=== PATIENT | male | born 1950 | race Caucasian/White ===

== ENCOUNTER 2018-02-02 15:11 | Inpatient (IN) | payer MEDICARE ==
[2018-02-02] MEDS ORDERED: SODIUM CHLORIDE 0.9% 500 ML IV ONE ×2 (15:24→16:43)
--- NOTE | 2018-02-02 15:31 | ED ---
General Adult HPI - General Source: patient, RN notes reviewed Mode of arrival: wheelchair Limitations: no limitations <Shant Fu - Last Filed: 02/02/18 16:43> <Raf Ford - Last Filed: 02/02/18 17:17> - General Chief complaint: Fall Stated complaint: Fall/petition Time Seen by Provider: 02/02/18 15:11 - History of Present Illness Initial comments: This is a 67-year-old male who presents emergency department for multiple falls since yesterday. According to the patient he fell yesterday and hit his face but he did not want to come to the emergency department. Today he did go in to [facility] and started to be evaluated when he signed out AMA. Patient since has fallen again landed face first according to witnesses and try to sign off but was not alert and oriented 3 so police brought him in with EMS. Patient's has no complaints at the present time however he does believe it is February or March. I do not know what his baseline is but his family member states that he normally can tell what month it is. Family member also states that he drinks daily. Patient denies drinking today however family member states she thinks he was drinking today. Patient denies headache patient denies neck pain patient denies numbness weakness. Patient denies any facial tenderness. Patient denies any chest pain back pain or any extremity pain at this time. Patient is full range of motion of all 4 extremities. (Shant Fu) - Related Data Home Medications Medication Instructions Recorded Confirmed Omeprazole [PriLOSEC] 20 mg PO AC-BRKFST 02/02/18 02/02/18 Simvastatin [Zocor] 20 mg PO DAILY 02/02/18 02/02/18 amLODIPine [Norvasc] 10 mg PO DAILY 02/02/18 02/02/18 Allergies Allergy/AdvReac Type Severity Reaction Status Date / Time No Known Allergies Allergy Verified 02/02/18 16:20 Review of Systems ROS Other: All systems not noted in ROS Statement are negative. <Shant Fu - Last Filed: 02/02/18 16:43> ROS Other: All systems not noted in ROS Statement are negative. <Raf Ford - Last Filed: 02/02/18 17:17> ROS Statement: Those systems with pertinent positive or pertinent negative responses have been documented in the HPI. Past Medical History Past Medical History: Hyperlipidemia, Hypertension History of Any Multi-Drug Resistant Organisms: None Reported Past Surgical History: Tonsillectomy Past Psychological History: No Psychological Hx Reported Smoking Status: Former smoker Past Alcohol Use History: Abuse Past Drug Use History: None Reported <Shant Fu - Last Filed: 02/02/18 16:43> General Exam Limitations: no limitations <Shant Fu - Last Filed: 02/02/18 16:43> <Raf Ford - Last Filed: 02/02/18 17:17> - General Exam Comments Initial Comments: GENERAL: Patient is well-developed and well-nourished. Patient is nontoxic and well- hydrated and is in no acute distress. ENT: Neck is soft and supple. No significant lymphadenopathy is noted. Oropharynx is clear. Moist mucous membranes. Neck has full range of motion without eliciting any pain. EYES: The sclera were anicteric and conjunctiva were pink and moist. Extraocular movements were intact and pupils were equal round and reactive to light. Eyelids were unremarkable. PULMONARY: Unlabored respirations. Good breath sounds bilaterally. No audible rales rhonchi or wheezing was noted. CARDIOVASCULAR: There is a regular rate and rhythm without any murmurs gallops or rubs. ABDOMEN: Soft and nontender with normal bowel sounds. No palpable organomegaly was noted. There is no palpable pulsatile mass. SKIN: Patient has a superficial abrasion on the forehead as well as the nose NEUROLOGIC: Patient is alert and oriented 2. Cranial nerves II through XII are grossly intact. Motor and sensory are also intact. Normal speech, volume and content. Symmetrical smile. MUSCULOSKELETAL: Normal extremities with adequate strength and full range of motion. Patient has no facial tenderness at all. LYMPHATICS: No significant lymphadenopathy is noted PSYCHIATRIC: Normal psychiatric evaluation. Patient denies suicidal or homicidal ideations. (Shant Fu) Vital Signs 02/02/18 02/02/18 15:13 16:30 Temperature 97.6 F Pulse Rate 80 78 Respiratory 16 18 Rate Blood Pressure 133/65 132/61 O2 Sat by Pulse 100 Oximetry EKG Findings - EKG Results: EKG: interpreted by ERMD, sinus rhythm (Sinus rhythm rate of 82. Interval 162 QRS duration 86 QT since QTC 492/[address] configuration a marked amount of artifact is present) <Raf Ford - Last Filed: 02/02/18 17:17> Medical Decision Making - Lab Data Result diagrams: 02/02/18 15:20 02/02/18 15:20 <Shant Fu - Last Filed: 02/02/18 16:43> - Lab Data Result diagrams: 02/02/18 15:20 02/02/18 15:20 <Raf Ford - Last Filed: 02/02/18 17:17> - Medical Decision Making CT of the face C-spine and brain showed no acute abnormalities. Patient's sodium was low on potassium was slightly gave the patient supplements of potassium and gave him a 1000 mL bolus of normal saline and put him on 100 and hour. I spoke with Dr. Aj he agreed to admit the patient admitted the patient I wrote admitting orders. (Shant Fu) - Lab Data Lab Results 02/02/18 02/02/18 02/02/18 Range/Units 15:20 15:20 15:20 WBC (3.8-10.6) k/uL RBC (4.30-5.90) m/uL Hgb (13.0-17.5) gm/dL Hct (39.0-53.0) % MCV (80.0-100.0) fL MCH (25.0-35.0) pg MCHC (31.0-37.0) g/dL RDW (11.5-15.5) % Plt Count (150-450) k/uL Neutrophils % % Lymphocytes % % Monocytes % % Eosinophils % % Basophils % % Neutrophils # (1.3-7.7) k/uL Lymphocytes # (1.0-4.8) k/uL Monocytes # (0-1.0) k/uL Eosinophils # (0-0.7) k/uL Basophils # (0-0.2) k/uL Hypochromasia Poikilocytosis Anisocytosis Microcytosis PT (9.0-12.0) sec INR (<1.2) APTT (22.0-30.0) sec Sodium 114 L* (137-145) mmol/L Potassium 3.0 L* (3.5-5.1) mmol/L Chloride 72 L* (98-107) mmol/L Carbon Dioxide 29 (22-30) mmol/L Anion Gap 13 mmol/L BUN 16 (9-20) mg/dL Creatinine 0.60 L (0.66-1.25) mg/dL Est GFR (CKD-EPI)AfAm >90 (>60 ml/min/1.73 sqM) Est GFR (CKD-EPI)NonAf >90 (>60 ml/min/1.73 sqM) Glucose 101 H (74-99) mg/dL Calcium 9.2 (8.4-10.2) mg/dL Magnesium 1.8 (1.6-2.3) mg/dL Total Bilirubin 1.1 (0.2-1.3) mg/dL AST 91 H (17-59) U/L ALT 55 (21-72) U/L Alkaline Phosphatase 79 (38-126) U/L Ammonia <9 (<30) umol/L Total Creatine Kinase 817 H (55-170) U/L CK-MB (CK-2) 10.8 H* (0.0-2.4) ng/mL CK-MB (CK-2) Rel Index 1.3 Troponin I <0.012 (0.000-0.034) ng/mL Total Protein 7.2 (6.3-8.2) g/dL Albumin 4.5 (3.5-5.0) g/dL Urine Color Urine Appearance (Clear) Urine pH (5.0-8.0) Ur Specific [place] (1.001-1.035) Urine Protein (Negative) Urine Glucose (UA) (Negative) Urine Ketones (Negative) Urine Blood (Negative) Urine Nitrite (Negative) Urine Bilirubin (Negative) Urine Urobilinogen (<2.0) mg/dL Ur Leukocyte Esterase (Negative) Urine Opiates Screen (NotDetected) Ur Oxycodone Screen (NotDetected) Urine Methadone Screen (NotDetected) Ur Propoxyphene Screen (NotDetected) Ur Barbiturates Screen (NotDetected) U Tricyclic Antidepress (NotDetected) Ur Phencyclidine Scrn (NotDetected) Ur Amphetamines Screen (NotDetected) U Methamphetamines Scrn (NotDetected) U Benzodiazepines Scrn (NotDetected) Urine Cocaine Screen (NotDetected) U Marijuana (THC) Screen (NotDetected) Serum Alcohol <10 mg/dL 02/02/18 02/02/18 02/02/18 Range/Units 15:20 15:20 15:20 WBC 9.3 (3.8-10.6) k/uL RBC 4.30 (4.30-5.90) m/uL Hgb 8.8 L (13.0-17.5) gm/dL Hct 28.0 L (39.0-53.0) % MCV 65.2 L (80.0-100.0) fL MCH 20.4 L (25.0-35.0) pg MCHC 31.3 (31.0-37.0) g/dL RDW 17.6 H (11.5-15.5) % Plt Count 255 (150-450) k/uL Neutrophils % 88 % Lymphocytes % 2 % Monocytes % 8 % Eosinophils % 0 % Basophils % 0 % Neutrophils # 8.2 H (1.3-7.7) k/uL Lymphocytes # 0.2 L (1.0-4.8) k/uL Monocytes # 0.7 (0-1.0) k/uL Eosinophils # 0.0 (0-0.7) k/uL Basophils # 0.0 (0-0.2) k/uL Hypochromasia Moderate Poikilocytosis Slight Anisocytosis Slight Microcytosis Marked PT 10.1 (9.0-12.0) sec INR 1.0 (<1.2) APTT 23.9 (22.0-30.0) sec Sodium (137-145) mmol/L Potassium (3.5-5.1) mmol/L Chloride (98-107) mmol/L Carbon Dioxide (22-30) mmol/L Anion Gap mmol/L BUN (9-20) mg/dL Creatinine (0.66-1.25) mg/dL Est GFR (CKD-EPI)AfAm (>60 ml/min/1.73 sqM) Est GFR (CKD-EPI)NonAf (>60 ml/min/1.73 sqM) Glucose (74-99) mg/dL Calcium (8.4-10.2) mg/dL Magnesium (1.6-2.3) mg/dL Total Bilirubin (0.2-1.3) mg/dL AST (17-59) U/L ALT (21-72) U/L Alkaline Phosphatase (38-126) U/L Ammonia (<30) umol/L Total Creatine Kinase (55-170) U/L CK-MB (CK-2) (0.0-2.4) ng/mL CK-MB (CK-2) Rel Index Troponin I (0.000-0.034) ng/mL Total Protein (6.3-8.2) g/dL Albumin (3.5-5.0) g/dL Urine Color Yellow Urine Appearance Clear (Clear) Urine pH 6.0 (5.0-8.0) Ur Specific [place] 1.013 (1.001-1.035) Urine Protein Trace H (Negative) Urine Glucose (UA) Negative (Negative) Urine Ketones 2+ H (Negative) Urine Blood Negative (Negative) Urine Nitrite Negative (Negative) Urine Bilirubin Negative (Negative) Urine Urobilinogen 2.0 (<2.0) mg/dL Ur Leukocyte Esterase Negative (Negative) Urine Opiates Screen Not Detected (NotDetected) Ur Oxycodone Screen Not Detected (NotDetected) Urine Methadone Screen Not Detected (NotDetected) Ur Propoxyphene Screen Not Detected (NotDetected) Ur Barbiturates Screen Not Detected (NotDetected) U Tricyclic Antidepress Not Detected (NotDetected) Ur Phencyclidine Scrn Not Detected (NotDetected) Ur Amphetamines Screen Not Detected (NotDetected) U Methamphetamines Scrn Not Detected (NotDetected) U Benzodiazepines Scrn Not Detected (NotDetected) Urine Cocaine Screen Not Detected (NotDetected) U Marijuana (THC) Screen Not Detected (NotDetected) Serum Alcohol mg/dL Critical Care Time Critical Care Time: Yes Total Critical Care Time: 35 <Shant Fu - Last Filed: 02/02/18 16:43> Disposition Time of Disposition: 16:37 <Shant Fu - Last Filed: 02/02/18 16:43> <Raf Ford - Last Filed: 02/02/18 17:17> Clinical Impression: Fall, Anemia, Alcohol abuse, Altered mental status, Hyponatremia, Hypokalemia Disposition: ADMITTED IP TO THIS HOSP
[2018-02-02 15:54] LABS: Anisocytosis Slight; Appearance,Urine Clear (Clear); Basophils % (A) 0 %; Bilirubin,Urine Negative (Negative); Blood,Urine Negative (Negative); Color,Urine Yellow; Eosinophils % (A) 0 %; Glucose,Urine (UA) Negative (Negative); HGB 8.8 gm/dL (13.0-17.5); Hypochromasia Moderate; Ketones,Urine 2+ (Negative); Leukocyte Esterase,Urine Negative (Negative); Lymphocytes # (A) 0.2 k/uL (1.0-4.8); Lymphocytes % (A) 2 %; MCH 20.4 pg (25.0-35.0); MCHC 31.3 g/dL (31.0-37.0); MCV 65.2 fL (80.0-100.0); Mean Platelet Volume 6.6; Microcytosis Marked; Monocytes # (A) 0.7 k/uL (0-1.0); Monocytes % (A) 8 %; Neutrophils # (A) 8.2 k/uL (1.3-7.7); Neutrophils % (A) 88 %; Nitrite,Urine Negative (Negative); Platelet Count 255 k/uL (150-450); Poikilocytosis Slight; Protein,Urine Trace (Negative); RDW 17.6 % (11.5-15.5); Specific Gravity,Urine 1.013 (1.001-1.035); WBC 9.3 k/uL (3.8-10.6)
[2018-02-02 16:01] LABS: ALT 55 U/L (21-72); AST 91 U/L (17-59); Albumin 4.5 g/dL (3.5-5.0); Alcohol <10 mg/dL; Alkaline Phosphatase 79 U/L (38-126); Amphetamine Screen,Urine Not Detected (NotDetected); Anion Gap 13 mmol/L; Barbiturate Screen,Urine Not Detected (NotDetected); Benzodiazepines Screen,Urine Not Detected (NotDetected); Blood Urea Nitrogen 16 mg/dL (9-20); Calcium 9.2 mg/dL (8.4-10.2); Carbon Dioxide 29 mmol/L (22-30); Cocaine Screen,Urine Not Detected (NotDetected); Glucose 101 mg/dL (74-99); Magnesium 1.8 mg/dL (1.6-2.3); Methadone Screen, Urine Not Detected (NotDetected); Opiate Screen,Urine Not Detected (NotDetected); Oxycodone Screen, Urine Not Detected (NotDetected); Phencyclidine Screen,Urine Not Detected (NotDetected); Total Bilirubin 1.1 mg/dL (0.2-1.3); Total Protein 7.2 g/dL (6.3-8.2); Tricyclic Antidepressant,Urine Not Detected (NotDetected); Urn Cannabinoid Scrn Not Detected (NotDetected)
[2018-02-02 16:05] LABS: Partial Thromboplastin Time 23.9 sec (22.0-30.0); Prothrombin Time 10.1 sec (9.0-12.0)
[2018-02-02 16:07] LABS: Chloride 72 mmol/L (98-107); Sodium 114 mmol/L (137-145)
--- NOTE | 2018-02-02 16:12 | XR ---
EXAMINATION TYPE: XR chest 2V DATE OF EXAM: 02/02/2018 COMPARISON: NONE HISTORY: Increased confusion and multiple falls today. TECHNIQUE: Frontal and lateral views of the chest are obtained. FINDINGS: Slightly elevated left hemidiaphragm is present. There is no focal air space opacity, pleur al effusion, or pneumothorax seen. The cardiac silhouette size is within normal limits. The osseou s structures are intact. IMPRESSION: No acute cardiopulmonary process.
[2018-02-02 16:16] LABS: Creatine Kinase 817 U/L (55-170)
--- NOTE | 2018-02-02 16:24 | CT ---
EXAMINATION TYPE: CT facial bones wo con DATE OF EXAM: 02/02/2018 COMPARISON: NONE HISTORY: Fall injury with facial pain. CT DLP: 708.4 mGycm. Automated Exposure Control for Dose Reduction was Utilized. TECHNIQUE: CT scan of the facial bones are performed without contrast. FINDINGS: Nasal bones are intact. The zygomatic arches are intact. Visualized mandible is intact. Tem poromandibular joints are maintained bilaterally. Orbital floors and reis are intact. The globes are intact bilaterally. Intraconal fat is preserved. Pterygoid plates are intact. Visualized paranasal sinuses are clear. Please see same-day CT brain report for complete details on b rain parenchyma. Age-related atrophy and chronic small vessel ischemic change is noted. IMPRESSION: No acute facial bone fracture or dislocation is seen.
[2018-02-02] MEDS ORDERED: POTASSIUM CHLORIDE ER 20 MEQ TAB.ER PO STA (16:26)
--- NOTE | 2018-02-02 16:28 | CT ---
EXAMINATION TYPE: CT brain udayine wo con DATE OF EXAM: 02/02/2018 COMPARISON: NONE HISTORY: Fall. CT DLP: 1633 mGycm Automated exposure control for dose reduction was used. TECHNIQUE: CT scan of the head and cervical spine are performed without contrast. FINDINGS: There is no acute intracranial hemorrhage, mass effect, or midline shift identified. The ventricles and sulci are within normal limits in size. There is likely age-related atrophy. Perivent ricular white matter shows low attenuation likely due to chronic small vessel ischemia. Cerebral vasc ular calcifications are present. The globes are intact and the visualized sinuses are clear. Cervical spine is visualized in its entirety from C1 through upper thoracic levels and demonstrates s atisfactory alignment without evidence of acute fracture or dislocation. Prevertebral soft tissue ap pears within normal limits. The C1-C2 articulation is unremarkable. There is multilevel spondylosis present with associated loss of disc height. Posterior extension of endplate disc complex and extens ion laterally results in foraminal encroachment and multilevel spinal stenosis greatest at C4-5, C5-6 . There is multilevel facet arthropathy. Emphysematous changes are noted at the lung apices. IMPRESSION: 1. There is no acute fracture or dislocation evident in the cervical spine. 2. No acute intracranial hemorrhage, mass effect, or midline shift is seen. 3. Spinal stenosis, multilevel foraminal encroachment, age related atrophy and chronic small vessel i schemia
[2018-02-02 16:29] LABS: Troponin I <0.012 ng/mL (0.000-0.034)
[2018-02-02 16:30] LABS: Creatine Kinase MB 10.8 ng/mL (0.0-2.4)
[2018-02-02] MEDS ORDERED: SODIUM CHLORIDE 0.9% 1,000 ML IV ONE (16:41)
[2018-02-02] MEDS ORDERED: LORazepam 2 MG/ML INJ IV PRN ×4 (16:41→18:37)
[2018-02-02] MEDS ORDERED: THIAMINE 100 MG/ML 2 ML VIAL IM STA (18:37)
[2018-02-02] MEDS: THIAMINE 100 MG TAB PO SCH (21:00)
[2018-02-02 21:04] LABS: ALT 49 U/L (21-72); AST 64 U/L (17-59); Albumin 3.7 g/dL (3.5-5.0); Alkaline Phosphatase 64 U/L (38-126); Anion Gap 11 mmol/L; Blood Urea Nitrogen 14 mg/dL (9-20); Calcium 8.3 mg/dL (8.4-10.2); Carbon Dioxide 29 mmol/L (22-30); GGT 32 U/L (15-73); Glucose 103 mg/dL (74-99); Total Bilirubin 0.8 mg/dL (0.2-1.3)
[2018-02-02 21:12] LABS: Sodium 118 mmol/L (137-145)
[2018-02-02 21:13] LABS: Chloride 78 mmol/L (98-107)
[2018-02-02] MEDS ORDERED: Potassium Replacement Protocol 1 EACH MISC MISCELLANE PRN (21:45)
[2018-02-02] MEDS: POTASSIUM CHLORIDE ER 20 MEQ TAB.ER PO SCH ×2 (22:21→23:06)
[2018-02-03] MEDS: POTASSIUM CHLORIDE ER 20 MEQ TAB.ER PO SCH ×4 (01:48→10:24)
[2018-02-03 06:54] LABS: Anisocytosis Slight; Basophils % (A) 0 %; Eosinophils % (A) 0 %; HCT 26.6 % (39.0-53.0); HGB 8.1 gm/dL (13.0-17.5); Hypochromasia Marked; Lymphocytes # (A) 0.2 k/uL (1.0-4.8); Lymphocytes % (A) 3 %; MCH 20.3 pg (25.0-35.0); MCHC 30.3 g/dL (31.0-37.0); MCV 67.1 fL (80.0-100.0); Mean Platelet Volume 6.6; Microcytosis Marked; Monocytes # (A) 0.5 k/uL (0-1.0); Monocytes % (A) 9 %; Neutrophils # (A) 5.4 k/uL (1.3-7.7); Neutrophils % (A) 85 %; Platelet Count 253 k/uL (150-450); Poikilocytosis Slight; RBC 3.97 m/uL (4.30-5.90); RDW 17.7 % (11.5-15.5); WBC 6.3 k/uL (3.8-10.6)
[2018-02-03 07:04] LABS: ALT 56 U/L (21-72); AST 63 U/L (17-59); Albumin 3.8 g/dL (3.5-5.0); Alkaline Phosphatase 73 U/L (38-126); Anion Gap 11 mmol/L; Blood Urea Nitrogen 10 mg/dL (9-20); Calcium 8.2 mg/dL (8.4-10.2); Carbon Dioxide 28 mmol/L (22-30); Chloride 83 mmol/L (98-107); Glucose 84 mg/dL (74-99); Magnesium 1.7 mg/dL (1.6-2.3); Potassium 3.5 mmol/L (3.5-5.1); Sodium 122 mmol/L (137-145); Total Bilirubin 0.8 mg/dL (0.2-1.3); Total Protein 6.2 g/dL (6.3-8.2)
[2018-02-03] MEDS: ATORVASTATIN 10 MG TAB PO SCH (08:42)
[2018-02-03] MEDS: amLODIPine 10 MG TAB PO SCH (08:42)
[2018-02-03] MEDS: PANTOPRAZOLE 40 MG/10 ML VIAL IVP SCH (08:42)
[2018-02-03 08:49] LABS: Reticulocyte % 2.1 % (0.5-2.0)
[2018-02-03] MEDS: THIAMINE 100 MG TAB PO SCH ×2 (11:14→16:20)
[2018-02-03 11:36] VITALS: BMI 16.3
[2018-02-03] MEDS ORDERED: FOLIC ACID 1 MG TAB PO SCH (12:00)
[2018-02-03 13:33] LABS: Anion Gap 7 mmol/L; Blood Urea Nitrogen 11 mg/dL (9-20); Calcium 8.1 mg/dL (8.4-10.2); Carbon Dioxide 30 mmol/L (22-30); Chloride 88 mmol/L (98-107); Glucose 132 mg/dL (74-99); Potassium 3.9 mmol/L (3.5-5.1); Sodium 125 mmol/L (137-145)
--- NOTE | 2018-02-03 13:33 | P.HPIM ---
History of Present Illness H&P Date: 02/03/18 Chief Complaint: Multiple falls. This is a history and physical on a 67-year-old white male who has an underlying history of severe alcoholism for the last 50 years. The patient has been at home stating multiple falls. History is somewhat vague because the patient states that he completely stopped drinking about a week ago, but this has not been corroborated from his family. He tells me he drinks at least 3 Budweiser daily. His family states that he can drink up to 4 16 ounce bottles of BudweiserAt one time and he has been doing this for at least 45-50 years there is no history of delirium tremens. He has an underlying history of hyperlipidemia otherwise. Because of his altered mental status he was appropriately admitted. CT scans ability did not show any type of new vascular accident. Again, no history of delirium tremens or seizure disorder. Review of Systems Constitutional: Denies chills, Denies fever Eyes: denies blurred vision, denies pain Ears, nose, mouth and throat: Denies headache, Denies sore throat Cardiovascular: Denies chest pain, Denies shortness of breath Respiratory: Denies cough Gastrointestinal: Denies abdominal pain, Denies diarrhea, Denies nausea, Denies vomiting Musculoskeletal: Denies neck pain Integumentary: Reports rash Neurological: Reports as per HPI Past Medical History Past Medical History: Hyperlipidemia, Hypertension Additional Past Medical History / Comment(s): pt is an alcoholic drinks 4-16 oz of beer per day. Pt smokes 3-4 cigarettes. History of Any Multi-Drug Resistant Organisms: None Reported Past Surgical History: Tonsillectomy Past Anesthesia/Blood Transfusion Reactions: No Reported Reaction Past Psychological History: No Psychological Hx Reported Smoking Status: Current every day smoker Past Alcohol Use History: Abuse, Daily Additional Past Alcohol Use History / Comment(s): drinks 4- 16 oz of beer per day Past Drug Use History: None Reported - Past Family History Father History Unknown: Yes Mother History Unknown: Yes Medications and Allergies Home Medications Medication Instructions Recorded Confirmed Type Omeprazole [PriLOSEC] 20 mg PO AC-BRKFST 02/02/18 02/02/18 History Simvastatin [Zocor] 20 mg PO DAILY 02/02/18 02/02/18 History amLODIPine [Norvasc] 10 mg PO DAILY 02/02/18 02/02/18 History Allergies Allergy/AdvReac Type Severity Reaction Status Date / Time No Known Allergies Allergy Verified 02/02/18 16:20 Physical Exam Vitals: Vital Signs Temp Pulse Pulse Resp BP BP Pulse Ox 02/03/18 11:33 99 F 81 16 121/58 99 02/03/18 08:00 97 F L 75 18 108/51 97 02/03/18 03:53 80 18 02/03/18 03:51 98.3 F 80 18 125/63 02/03/18 00:00 86 17 02/02/18 23:59 97.1 F L 86 17 114/53 02/02/18 20:00 97.4 F L 84 16 117/61 02/02/18 19:09 83 16 02/02/18 17:46 98.0 F 02/02/18 17:36 81 18 135/65 98 02/02/18 17:00 97.4 F L 83 16 120/57 96 02/02/18 16:30 78 18 132/61 100 02/02/18 15:13 97.6 F 80 16 133/65 Intake and Output 02/02/18 02/03/18 02/03/18 22:59 06:59 14:59 Intake Total 360 200 180 Output Total 350 600 Balance 360 -150 -420 Intake: Oral 360 200 180 Output: Urine 350 600 Other: Voiding Method Urinal Urinal Urinal # Voids 1 Weight 45 kg 44.6 kg 44.6 kg - Constitutional General appearance: thin - EENT Eyes: no anicteric sclerae - Respiratory Respiratory: bilateral: CTA - Cardiovascular Rhythm: regular Heart sounds: normal: S1, S2 Abnormal Heart Sounds: no S3 Gallop - Gastrointestinal General gastrointestinal: soft, no tenderness - Integumentary Integumentary: no rash - Neurologic No tremor noted. No Asterixis Results CBC & Chem 7: 02/03/18 05:48 02/03/18 05:48 Labs: Abnormal Lab Results - Last 24 Hours (Table) 02/02/18 02/02/18 02/02/18 Range/Units 15:20 15:20 15:20 RBC (4.30-5.90) m/uL Hgb 8.8 L (13.0-17.5) gm/dL Hct 28.0 L (39.0-53.0) % MCV 65.2 L (80.0-100.0) fL MCH 20.4 L (25.0-35.0) pg MCHC (31.0-37.0) g/dL RDW 17.6 H (11.5-15.5) % Neutrophils # 8.2 H (1.3-7.7) k/uL Lymphocytes # 0.2 L (1.0-4.8) k/uL Retic Count (0.5-2.0) % Sodium 114 L* (137-145) mmol/L Potassium 3.0 L* (3.5-5.1) mmol/L Chloride 72 L* (98-107) mmol/L Creatinine 0.60 L (0.66-1.25) mg/dL Glucose 101 H (74-99) mg/dL Calcium (8.4-10.2) mg/dL AST 91 H (17-59) U/L Total Creatine Kinase 817 H (55-170) U/L CK-MB (CK-2) 10.8 H* (0.0-2.4) ng/mL Total Protein (6.3-8.2) g/dL Urine Protein (Negative) Urine Ketones (Negative) 02/02/18 02/02/18 02/03/18 Range/Units 15:20 20:12 00:45 RBC (4.30-5.90) m/uL Hgb (13.0-17.5) gm/dL Hct (39.0-53.0) % MCV (80.0-100.0) fL MCH (25.0-35.0) pg MCHC (31.0-37.0) g/dL RDW (11.5-15.5) % Neutrophils # (1.3-7.7) k/uL Lymphocytes # (1.0-4.8) k/uL Retic Count (0.5-2.0) % Sodium 118 L* (137-145) mmol/L Potassium 3.0 L* 3.1 L (3.5-5.1) mmol/L Chloride 78 L* (98-107) mmol/L Creatinine (0.66-1.25) mg/dL Glucose 103 H (74-99) mg/dL Calcium 8.3 L (8.4-10.2) mg/dL AST 64 H (17-59) U/L Total Creatine Kinase (55-170) U/L CK-MB (CK-2) (0.0-2.4) ng/mL Total Protein 6.0 L (6.3-8.2) g/dL Urine Protein Trace H (Negative) Urine Ketones 2+ H (Negative) 02/03/18 02/03/18 02/03/18 Range/Units 05:48 05:48 05:48 RBC 3.97 L (4.30-5.90) m/uL Hgb 8.1 L (13.0-17.5) gm/dL Hct 26.6 L (39.0-53.0) % MCV 67.1 L (80.0-100.0) fL MCH 20.3 L (25.0-35.0) pg MCHC 30.3 L (31.0-37.0) g/dL RDW 17.7 H (11.5-15.5) % Neutrophils # (1.3-7.7) k/uL Lymphocytes # 0.2 L (1.0-4.8) k/uL Retic Count 2.1 H (0.5-2.0) % Sodium 122 L (137-145) mmol/L Potassium (3.5-5.1) mmol/L Chloride 83 L (98-107) mmol/L Creatinine 0.48 L (0.66-1.25) mg/dL Glucose (74-99) mg/dL Calcium 8.2 L (8.4-10.2) mg/dL AST 63 H (17-59) U/L Total Creatine Kinase (55-170) U/L CK-MB (CK-2) (0.0-2.4) ng/mL Total Protein 6.2 L (6.3-8.2) g/dL Urine Protein (Negative) Urine Ketones (Negative) Thrombosis Risk Factor Assmnt - Choose All That Apply Each Risk Factor Represents 2 Points: Age 61-74 years Thrombosis Risk Factor Assessment Total Risk Factor Score: 2 Thrombosis Risk Factor Assessment Level: Low Risk Assessment and Plan (1) Alcohol abuse Current Visit: Yes Status: Acute Code(s): F10.10 - ALCOHOL ABUSE, UNCOMPLICATED SNOMED Code(s): 49056282 (2) Anemia Current Visit: Yes Status: Acute Code(s): D64.9 - ANEMIA, UNSPECIFIED SNOMED Code(s): 232017186 (3) Fall Current Visit: Yes Status: Acute Code(s): W19.XXXA - UNSPECIFIED FALL, INITIAL ENCOUNTER SNOMED Code(s): 4982439 (4) Hypokalemia Current Visit: Yes Status: Acute Code(s): E87.6 - HYPOKALEMIA SNOMED Code( s): 23768456 (5) Hyponatremia Current Visit: Yes Status: Acute Code(s): E87.1 - HYPO-OSMOLALITY AND HYPONATREMIA SNOMED Code(s): 51868345 Plan: Continue electrolyte replacement with potassium protocol and IV fluid. He is slowly improving in this matter. Check CBC and CMP in a.m. Microcytic anemia, this could be somewhat chronic but we will rule out any type of iron deficiency, which could be possible given his overall nutritional decreased given his ethanol use. Placed on [place] protocol for alcoholism. early childhood services coordinator for alcoholism. Thiamine and folate to be instituted. Ativan when necessary. Prognosis is otherwise guarded. Time with Patient: Greater than 30
[2018-02-03 16:33] LABS: Iron Saturation 2.46 (15.00-50.00)
[2018-02-04 06:12] LABS: Anisocytosis Slight; HGB 8.1 gm/dL (13.0-17.5); Hypochromasia Marked; MCH 19.8 pg (25.0-35.0); MCV 68.2 fL (80.0-100.0); Microcytosis Marked; Platelet Count 259 k/uL (150-450); Poikilocytosis Slight; RBC 4.11 m/uL (4.30-5.90); RDW 18.4 % (11.5-15.5)
[2018-02-04 06:44] LABS: ALT 53 U/L (21-72); AST 61 U/L (17-59); Albumin 3.9 g/dL (3.5-5.0); Alkaline Phosphatase 73 U/L (38-126); Anion Gap 10 mmol/L; Blood Urea Nitrogen 10 mg/dL (9-20); Calcium 8.5 mg/dL (8.4-10.2); Carbon Dioxide 28 mmol/L (22-30); Chloride 89 mmol/L (98-107); Glucose 102 mg/dL (74-99); Potassium 3.6 mmol/L (3.5-5.1); Sodium 127 mmol/L (137-145); Total Bilirubin 0.5 mg/dL (0.2-1.3); Total Protein 6.4 g/dL (6.3-8.2)
--- NOTE | 2018-02-04 07:08 | P.DS ---
Providers Date of admission: 02/02/18 16:42 Attending physician: Bubba Aj Primary care physician: Bubba Aj - Discharge Diagnosis(es) (1) Alcohol abuse Current Visit: Yes Status: Acute (2) Anemia Current Visit: Yes Status: Acute (3) Fall Current Visit: Yes Status: Acute (4) Hypokalemia Current Visit: Yes Status: Acute (5) Hyponatremia Current Visit: Yes Status: Acute Hospital Course: This is a discharge summary 67-year-old white male essentially admitted for multiple falls and ALLERGIC alcohol abuse. The patient has significant hyponatremia. I also suspect he has iron deficiency anemia. Ferritin is quite low with reticulocyte being high. I will discharge the patient on iron supplementation. The patient has not had any delirium tremens and no fall. Exam been ambulating appropriately and tolerating diet without difficulty. Question need for colonoscopy if anemia does not resolve. He does not complain of any type of GI bleeding. Guaiac stool has been ordered otherwise. Plan - Discharge Summary Discharge Rx Participant: No New Discharge Prescriptions: New Ferrous Sulfate [Feosol] 325 mg PO BID #60 tab Atorvastatin [Lipitor] 10 mg PO DAILY #30 tab Continue amLODIPine [Norvasc] 10 mg PO DAILY Omeprazole [PriLOSEC] 20 mg PO AC-BRKFST Discontinued Simvastatin [Zocor] 20 mg PO DAILY Discharge Medication List Omeprazole [PriLOSEC] 20 mg PO AC-BRKFST 02/02/18 [History] amLODIPine [Norvasc] 10 mg PO DAILY 02/02/18 [History] Atorvastatin [Lipitor] 10 mg PO DAILY #30 tab 02/04/18 [Rx] Ferrous Sulfate [Feosol] 325 mg PO BID #60 tab 02/04/18 [Rx] Follow up Appointment(s)/Referral(s): Bubba Aj MD [Primary Care Provider] - 1 Week Discharge Disposition: HOME SELF-CARE
[2018-02-04 08:02] VITALS: BP 90/44; PULSE 88; RESP 18; TEMP 98.3
[2018-02-04] MEDS: ATORVASTATIN 10 MG TAB PO SCH (08:45)
[2018-02-04] MEDS: PANTOPRAZOLE 40 MG/10 ML VIAL IVP SCH (08:45)
[2018-02-04] MEDS: amLODIPine 10 MG TAB PO SCH (08:45)
== END 2018-02-04 10:21 | disposition home or self-care (01) | DRG 641 ==
LOC: EC 15:11 → 6SEL 16:42
PROVIDERS: ADMIT Family Medicine; ATTEND Family Medicine
DX: E87.1 Hypo-osmolality and hyponatremia (principal); D50.9 Iron deficiency anemia, unspecified; E87.6 Hypokalemia; E78.5 Hyperlipidemia, unspecified; F10.20 Alcohol dependence, uncomplicated; I10 Essential (primary) hypertension; S00.81XA Abrasion of other part of head, initial encounter; S00.31XA Abrasion of nose, initial encounter; R29.6 Repeated falls; R41.82 Altered mental status, unspecified; F17.210 Nicotine dependence, cigarettes, uncomplicated; Y90.0 Blood alcohol level of less than 20 mg/100 ml; Z79.899 Other long term (current) drug therapy; W19.XXXA Unspecified fall, initial encounter
CPT/HCPCS: 36415; 70450; 70486; 71046; 72125; 80048; 80053; 80306; 80320; 81003; 82140; 82550; 82553; 82728; 82977; 83540; 83550; 83735; 84132; 84484; 85025; 85027; 85045; 85610; 85730; 93005; 96360; 99291

== ENCOUNTER 2018-03-21 20:41 | Emergency (ER) | payer MEDICARE ==
[2018-03-21 20:52] VITALS: RESP 18
--- NOTE | 2018-03-21 21:59 | CT ---
EXAMINATION TYPE: CT brain beata ramirez DATE OF EXAM: 03/21/2018 COMPARISON: NONE HISTORY: Fall CT DLP: 1651.30 mGycm, Automated exposure control for dose reduction was used. CONTRAST: Patient injected with 0 mL of Isovue 370. CT of the brain is performed utilizing 3 mm thick sections through the posterior fossa and 3 mm thick sections through the remaining calvarium. Study is performed within 24 hours of arrival to the hospital. No abnormal hyperdensity is present to suggest an acute intracranial hemorrhage. No mass lesion is evident. No acute infarcts are evident. Minimal periventricular white matter hypodensity is present, likely o n the basis of chronic white matter ischemic change, present previously. Ventricles and sulci are mildly prominent for the patient age. Paranasal sinuses and mastoid air cells within the [id number] are clear. IMPRESSIONS: 1. Atrophy with mild periventricular white matter ischemic type changes CT cervical spine. COMPARISON: None CT of the cervical spine is performed in the axial plane at 2 mm thick sections. Reconstructed image s in the coronal, and sagittal plane are reviewed on the computer. No acute fractures are evident. There is a kyphosis centered at C3-4. There is diffuse loss of disc height throughout the cervical sp ine. Uncovertebral joint hypertrophy is present throughout the cervical spine causing severe foramina l stenosis especially noted C3-4 through C6-7.. Endplate spurring at C5-6 as canal stenosis as well. Vertebral body heights are preserved. IMPRESSIONS: 1. No acute osseous abnormality. 2. Severe foraminal stenosis within the cervical spine due to uncovertebral joint hypertrophy. 3. Multilevel advanced degenerative disc changes. 4. Spinal canal stenosis C5-6 secondary to endplate spurring
--- NOTE | 2018-03-21 22:01 | CT ---
EXAMINATION TYPE: CT facial bones wo con DATE OF EXAM: 03/21/2018 COMPARISON: NONE HISTORY: Fall CT DLP: 1651.30 mGycm CONTRAST: 0 mL of Isovue 300 The paranasal sinuses are examined in the axial plane at 2 mm thick sections. Reconstructed images i n the coronal plane were obtained. Nasal bone fractures are evident. Soft tissue swelling over the left periorbital region is present. M axillary spine appears intact. Maxilla and mandible within the [id number] are normal. Zygomatic ar ches within the [id number] are normal. There is right septal deviation. Ostiomeatal units are goldstein nt. Very minimal mucosal thickening is within the right maxillary sinus. No suspicious air-fluid levels a re present. The ethmoid air cells are clear. Because thickening is within the right sphenoid sinus The frontal sinuses are clear. IMPRESSIONS: 1. Fracture of the nasal bones. 2. Soft tissue swelling left frontal region
--- NOTE | 2018-03-21 23:33 | ED ---
Fall HPI - General Chief Complaint: Fall Stated Complaint: Fall, head lac Time Seen by Provider: 03/21/18 20:59 Source: patient, EMS Mode of arrival: EMS - History of Present Illness Initial Comments: 67-year-old male patient presents to the emergency department today for evaluation of facial injury following a fall. Patient does admit to drinking alcohol today, states that he was standing in the kitchen when he tripped and fell landing on his face. Patient denies any loss of consciousness with the fall. States he does have cuts to his face and nose. He denies any current headache, neck pain, back pain, dizziness, or weakness. Denies any chest pain, shortness of breath, abdominal pain, nausea, or vomiting. Patient denies any numbness or tingling to the extremities. He denies any blurred or double vision. Last tetanus vaccine was given 2 years ago. Patient denies any difficulties with bowel movements or urination. - Related Data Home Medications Medication Instructions Recorded Confirmed Omeprazole [PriLOSEC] 20 mg PO AC-BRKFST 02/02/18 02/02/18 amLODIPine [Norvasc] 10 mg PO DAILY 02/02/18 02/02/18 Previous Rx's Medication Instructions Recorded Atorvastatin [Lipitor] 10 mg PO DAILY #30 tab 02/04/18 Ferrous Sulfate [Feosol] 325 mg PO BID #60 tab 02/04/18 Allergies Allergy/AdvReac Type Severity Reaction Status Date / Time No Known Allergies Allergy Verified 02/02/18 16:20 Review of Systems ROS Statement: Those systems with pertinent positive or pertinent negative responses have been documented in the HPI. ROS Other: All systems not noted in ROS Statement are negative. Past Medical History Past Medical History: Hyperlipidemia, Hypertension Additional Past Medical History / Comment(s): pt is an alcoholic drinks 4-16 oz of beer per day. Pt smokes 3-4 cigarettes. History of Any Multi-Drug Resistant Organisms: None Reported Past Surgical History: Tonsillectomy Past Anesthesia/Blood Transfusion Reactions: No Reported Reaction Past Psychological History: No Psychological Hx Reported Smoking Status: Current every day smoker Past Alcohol Use History: Abuse, Daily Past Drug Use History: None Reported - Past Family History Father History Unknown: Yes Mother History Unknown: Yes General Exam Limitations: no limitations General appearance: alert, in no apparent distress, appears intoxicated, other ( This is a well-developed, well-nourished adult male patient in no acute distress. Vital signs upon presentation are 97.2F, pulse 73, respirations 18, blood pressure 127/60, pulse ox 99% on room air.) Eye exam: Present: normal appearance, PERRL, EOMI, periorbital tenderness ( Patient has some tenderness over the left superior orbit), other (Patient has a 2 cm laceration to the left eyebrow). Absent: scleral icterus, conjunctival injection, nystagmus, periorbital swelling ENT exam: Present: normal oropharynx, mucous membranes moist, TM's normal bilaterally, other (Patient has abrasion to the nasal bridge, nasal bridge tenderness. No evidence of epistaxis. No septal hematoma.). Absent: normal exam Neck exam: Present: normal inspection. Absent: tenderness (Denies tenderness to firm midline palpation of posterior cervical spine), meningismus, full ROM (C -collar in place), lymphadenopathy Respiratory exam: Present: normal lung sounds bilaterally. Absent: respiratory distress, wheezes, rales, rhonchi, stridor Cardiovascular Exam: Present: regular rate, normal rhythm, normal heart sounds. Absent: systolic murmur, diastolic murmur, rubs, gallop, clicks GI/Abdominal exam: Present: soft, normal bowel sounds. Absent: distended, tenderness, guarding, rebound, rigid Extremities exam: Present: full ROM, normal capillary refill, other (Patient has healing abrasion to the left knee, appears old). Absent: normal inspection , tenderness, pedal edema, joint swelling, calf tenderness Back exam: Present: normal inspection, other (Nontender, no step-off, no deformity to firm midline palpation of the thoracic and lumbar vertebrae. Full range of motion without pain or limitation.). Absent: vertebral tenderness Neurological exam: Present: alert, oriented X3, CN II-XII intact Psychiatric exam: Present: normal affect, normal mood Skin exam: Present: warm, dry, intact, normal color. Absent: rash Course Vital Signs 03/21/18 03/21/18 20:43 23:56 Temperature 97.2 F L 97 F L Pulse Rate 73 98 Respiratory 18 18 Rate Blood Pressure 127/60 134/81 O2 Sat by Pulse 99 98 Oximetry Procedures - Laceration Laceration #1 Consent Obtained: verbal consent Time Out Performed: Yes Indication: laceration Site: face (Left eyebrow) Size (cm): 2 Description: linear Depth: simple, single layer Anesthetic Used: lidocaine 1% Anesthesia Technique: local infiltration Amount (mls): 3 Pre-repair: irrigated extensively Type of Sutures: nylon Size of Sutures: 5-0 Number of Sutures: 3 Technique: simple, interrupted Patient Tolerated Procedure: well, no complications Medical Decision Making - Medical Decision Making 67-year-old male patient presented to the emergency department today for evaluation after sustaining a fall at home. Physical examination did reveal some minor periorbital ecchymosis, nasal abrasion, and left eyebrow laceration. Patient was intoxicated but was neurologically intact. CT of the brain and C- spine were obtained and showed no acute abnormalities. CT of the face was obtained and showed a fracture of the nasal bones. Patient has no epistaxis. No evidence of septal hematoma. Did repair the laceration to left eyebrow as documented. Did discuss wound care and signs or symptoms of infection. He is instructed to return in 5 days for suture removal. They're instructed to follow -up with the primary care physician for recheck in 1-2 days. He is instructed to follow-up with ENT for further evaluation. Return parameters discussed in detail. He verbalizes understanding and agree with this plan. Patient will be discharged into the care of his step daughter and . - Radiology Data Radiology results: report reviewed, image reviewed CT of the brain and C-spine was obtained without contrast. Report was reviewed in its entirety. Impression by Dr. Wheeler shows atrophy with mild. Ventricular rate moderate ischemic type changes. Impression of the cervical spine shows no acute osseous abnormality. Surgery fear foraminal stenosis within the cervical spine due to uncovertebral joint hypertrophy. Multilevel advanced degenerative disc changes. Spinal canal stenosis C5 to 6 secondary to an plates brain. CT of the facial bones without contrast was obtained. Report was reviewed in its entirety. Impression by Dr. Wheeler shows fracture of the nasal bones. Soft tissue swelling left frontal region. Disposition Clinical Impression: Nasal fracture, Head injury, Eyebrow laceration Disposition: HOME SELF-CARE Condition: Good Instructions: Care For Your Stitches (ED), Laceration (ED), Fall Prevention for Older Adults (ED), Head Injury (ED) Additional Instructions: Keep wound clean and dry. Return in 5 days to have stitches removed. Wash wound twice daily with warm water and antibacterial soap. Follow-up with wave solder offbearer for further evaluation of a nasal fracture. Return here immediately for any new, worsening, or concerning symptoms. Is patient prescribed a controlled substance at d/c from ED?: No Referrals: Bubba Aj MD [Primary Care Provider] - 1-2 days Justin Gan MD [STAFF PHYSICIAN] - 1-2 days Time of Disposition: 23:33
[2018-03-21 23:57] VITALS: BP 134/81; PULSE 98; TEMP 97
== END 2018-03-21 23:55 | disposition home or self-care (01) ==
LOC: EC 20:41
DX: S02.2XXA Fracture of nasal bones, initial encounter for closed fracture (principal); S01.112A Laceration without foreign body of left eyelid and periocular area, initial encounter; S80.212A Abrasion, left knee, initial encounter; I10 Essential (primary) hypertension; F17.200 Nicotine dependence, unspecified, uncomplicated; Z79.899 Other long term (current) drug therapy; W01.0XXA Fall on same level from slipping, tripping and stumbling without subsequent striking against object, initial encounter; Y92.000 Kitchen of unspecified non-institutional (private) residence as the place of occurrence of the external cause
CPT/HCPCS: 12011; 70450; 70486; 72125; 99284

== ENCOUNTER 2018-04-28 16:33 | Inpatient (IN) | payer MEDICARE ==
[2018-04-28 17:07] LABS: Glucose,Whole Blood 57 mg/dL (75-99)
[2018-04-28] MEDS ORDERED: SODIUM CHLORIDE 0.9% 1,000 ML IV STA ×3 (17:10→17:56)
--- NOTE | 2018-04-28 17:10 | ED ---
General Adult HPI - General Chief complaint: Fall Stated complaint: ETOH, falls Time Seen by Provider: 04/28/18 16:36 Source: EMS, RN notes reviewed, old records reviewed Mode of arrival: EMS Limitations: altered mental status - History of Present Illness Initial comments: This is a 67-year-old male to the ER for evaluation of altered mental state, patient is positive for alcohol ingestion, patient admits to alcohol ingestion today and does have a history of drinking. Patient is brought in by EMS who his called EMS secondary to patient having multiple falls patient did fall on his head tonight and was altered after the fall. Patient currently has no complaints - Related Data Home Medications Medication Instructions Recorded Confirmed Omeprazole [PriLOSEC] 20 mg PO AC-BRKFST 02/02/18 02/02/18 amLODIPine [Norvasc] 10 mg PO DAILY 02/02/18 02/02/18 Previous Rx's Medication Instructions Recorded Atorvastatin [Lipitor] 10 mg PO DAILY #30 tab 02/04/18 Ferrous Sulfate [Feosol] 325 mg PO BID #60 tab 02/04/18 Allergies Allergy/AdvReac Type Severity Reaction Status Date / Time No Known Allergies Allergy Verified 04/28/18 16:51 Review of Systems ROS Statement: Those systems with pertinent positive or pertinent negative responses have been documented in the HPI. ROS Other: All systems not noted in ROS Statement are negative. Past Medical History Past Medical History: Hyperlipidemia, Hypertension Additional Past Medical History / Comment(s): pt is an alcoholic drinks 4-16 oz of beer per day. History of Any Multi-Drug Resistant Organisms: None Reported Past Surgical History: Tonsillectomy Past Anesthesia/Blood Transfusion Reactions: No Reported Reaction Past Psychological History: No Psychological Hx Reported Smoking Status: Current every day smoker Past Alcohol Use History: Abuse, Daily Past Drug Use History: None Reported - Past Family History Father History Unknown: Yes Mother History Unknown: Yes General Exam Limitations: altered mental status General appearance: alert, appears intoxicated Head exam: Present: atraumatic, normocephalic, normal inspection Eye exam: Present: normal appearance, PERRL, EOMI. Absent: scleral icterus, conjunctival injection, periorbital swelling ENT exam: Present: normal exam, mucous membranes moist Neck exam: Present: normal inspection. Absent: tenderness, meningismus, lymphadenopathy Respiratory exam: Present: normal lung sounds bilaterally. Absent: respiratory distress, wheezes, rales, rhonchi, stridor Cardiovascular Exam: Present: regular rate, normal rhythm, normal heart sounds. Absent: systolic murmur, diastolic murmur, rubs, gallop, clicks GI/Abdominal exam: Present: soft, normal bowel sounds. Absent: distended, tenderness, guarding, rebound, rigid Extremities exam: Present: normal inspection, full ROM, normal capillary refill. Absent: tenderness, pedal edema, joint swelling, calf tenderness Back exam: Present: normal inspection Neurological exam: Present: alert, oriented X3, CN II-XII intact Psychiatric exam: Present: normal affect, normal mood Skin exam: Present: warm, dry, intact, normal color. Absent: rash Course Vital Signs 04/28/18 16:49 Temperature 97.5 F L Pulse Rate 83 Respiratory 18 Rate Blood Pressure 138/63 O2 Sat by Pulse 97 Oximetry - Reevaluation(s) Reevaluation #1: 04/28/18 17:59 No improvement in mental state EKG Findings - EKG Comments: EKG Findings:: EKG shows normal sinus rhythm rate of 72, CA 198, QRS 80, QTC 462 Medical Decision Making - Medical Decision Making 67 male the ER for evaluation. Patient presents today for evaluation status post fall with altered mental state. Positive alcohol intoxication. Patient has multiple electrolyte derangements, will be admitted for fluid hydration watching of blood sugars and prevention of alcohol withdrawal - Lab Data Result diagrams: 04/28/18 16:46 04/28/18 16:46 Lab Results 04/28/18 04/28/18 04/28/18 Range/Units 16:45 16:46 16:46 WBC 7.6 (3.8-10.6) k/uL RBC 5.25 (4.30-5.90) m/uL Hgb 13.9 (13.0-17.5) gm/dL Hct 42.0 (39.0-53.0) % MCV 79.9 L (80.0-100.0) fL MCH 26.5 (25.0-35.0) pg MCHC 33.1 (31.0-37.0) g/dL RDW 21.9 H (11.5-15.5) % Plt Count 208 (150-450) k/uL Neutrophils % 63 % Lymphocytes % 17 % Monocytes % 9 % Eosinophils % 9 % Basophils % 0 % Neutrophils # 4.8 (1.3-7.7) k/uL Lymphocytes # 1.3 (1.0-4.8) k/uL Monocytes # 0.7 (0-1.0) k/uL Eosinophils # 0.7 (0-0.7) k/uL Basophils # 0.0 (0-0.2) k/uL Anisocytosis Moderate Microcytosis Moderate PT (9.0-12.0) sec INR (<1.2) APTT (22.0-30.0) sec Sodium 125 L (137-145) mmol/L Potassium 4.3 (3.5-5.1) mmol/L Chloride 80 L* (98-107) mmol/L Carbon Dioxide 27 (22-30) mmol/L Anion Gap 18 mmol/L BUN 5 L (9-20) mg/dL Creatinine 0.52 L (0.66-1.25) mg/dL Est GFR (CKD-EPI)AfAm >90 (>60 ml/min/1.73 sqM) Est GFR (CKD-EPI)NonAf >90 (>60 ml/min/1.73 sqM) Glucose 44 L* (74-99) mg/dL POC Glucose (mg/dL) 57 L (75-99) mg/dL POC Glu [employer] Developer Merari Perez Calcium 8.7 (8.4-10.2) mg/dL Phosphorus 3.9 (2.5-4.5) mg/dL Magnesium 1.9 (1.6-2.3) mg/dL Total Bilirubin 0.5 (0.2-1.3) mg/dL AST 37 (17-59) U/L ALT 36 (21-72) U/L Alkaline Phosphatase 70 (38-126) U/L Total Protein 7.2 (6.3-8.2) g/dL Albumin 4.6 (3.5-5.0) g/dL Serum Alcohol 247 mg/dL 04/28/18 04/28/18 Range/Units 16:46 17:25 WBC (3.8-10.6) k/uL RBC (4.30-5.90) m/uL Hgb (13.0-17.5) gm/dL Hct (39.0-53.0) % MCV (80.0-100.0) fL MCH (25.0-35.0) pg MCHC (31.0-37.0) g/dL RDW (11.5-15.5) % Plt Count (150-450) k/uL Neutrophils % % Lymphocytes % % Monocytes % % Eosinophils % % Basophils % % Neutrophils # (1.3-7.7) k/uL Lymphocytes # (1.0-4.8) k/uL Monocytes # (0-1.0) k/uL Eosinophils # (0-0.7) k/uL Basophils # (0-0.2) k/uL Anisocytosis Microcytosis PT 9.7 (9.0-12.0) sec INR 1.0 (<1.2) APTT 26.4 (22.0-30.0) sec Sodium (137-145) mmol/L Potassium (3.5-5.1) mmol/L Chloride (98-107) mmol/L Carbon Dioxide (22-30) mmol/L Anion Gap mmol/L BUN (9-20) mg/dL Creatinine (0.66-1.25) mg/dL Est GFR (CKD-EPI)AfAm (>60 ml/min/1.73 sqM) Est GFR (CKD-EPI)NonAf (>60 ml/min/1.73 sqM) Glucose (74-99) mg/dL POC Glucose (mg/dL) 103 H (75-99) mg/dL POC Glu Talend Developer ID Deven, Merari Calcium (8.4-10.2) mg/dL Phosphorus (2.5-4.5) mg/dL Magnesium (1.6-2.3) mg/dL Total Bilirubin (0.2-1.3) mg/dL AST (17-59) U/L ALT (21-72) U/L Alkaline Phosphatase (38-126) U/L Total Protein (6.3-8.2) g/dL Albumin (3.5-5.0) g/dL Serum Alcohol mg/dL - Radiology Data Radiology results: report reviewed (CT brain C-spine and facial bones negative for traumatic injury, x-ray pelvis negative), image reviewed Disposition Clinical Impression: Alcohol abuse, Altered mental status, Hyponatremia, Fall, Weakness, Hypoglycemia Disposition: ADMITTED IP TO THIS [facility] Condition: Fair Is patient prescribed a controlled substance at d/c from ED?: No Referrals: Bubba Aj MD [Primary Care Provider] - 1-2 days
[2018-04-28 17:27] LABS: Glucose,Whole Blood 103 mg/dL (75-99)
[2018-04-28 17:43] LABS: Anisocytosis Moderate; Basophils % (A) 0 %; Eosinophils # (A) 0.7 k/uL (0-0.7); Eosinophils % (A) 9 %; HGB 13.9 gm/dL (13.0-17.5); Lymphocytes # (A) 1.3 k/uL (1.0-4.8); Lymphocytes % (A) 17 %; MCH 26.5 pg (25.0-35.0); MCHC 33.1 g/dL (31.0-37.0); MCV 79.9 fL (80.0-100.0); Mean Platelet Volume 6.1; Microcytosis Moderate; Monocytes # (A) 0.7 k/uL (0-1.0); Monocytes % (A) 9 %; Neutrophils # (A) 4.8 k/uL (1.3-7.7); Neutrophils % (A) 63 %; Platelet Count 208 k/uL (150-450); RBC 5.25 m/uL (4.30-5.90); RDW 21.9 % (11.5-15.5); WBC 7.6 k/uL (3.8-10.6)
[2018-04-28 17:51] LABS: ALT 36 U/L (21-72); AST 37 U/L (17-59); Albumin 4.6 g/dL (3.5-5.0); Alkaline Phosphatase 70 U/L (38-126); Anion Gap 18 mmol/L; Blood Urea Nitrogen 5 mg/dL (9-20); Calcium 8.7 mg/dL (8.4-10.2); Carbon Dioxide 27 mmol/L (22-30); Magnesium 1.9 mg/dL (1.6-2.3); Phosphorus 3.9 mg/dL (2.5-4.5); Potassium 4.3 mmol/L (3.5-5.1); Sodium 125 mmol/L (137-145); Total Bilirubin 0.5 mg/dL (0.2-1.3); Total Protein 7.2 g/dL (6.3-8.2)
[2018-04-28 17:53] LABS: Alcohol 247 mg/dL; Partial Thromboplastin Time 26.4 sec (22.0-30.0); Prothrombin Time 9.7 sec (9.0-12.0)
[2018-04-28 17:54] LABS: Chloride 80 mmol/L (98-107); Glucose 44 mg/dL (74-99)
[2018-04-28] MEDS ORDERED: LORazepam 2 MG/ML INJ IV PRN ×3 (17:57)
[2018-04-28] MEDS ORDERED: THIAMINE 100 MG/ML 2 ML VIAL IM STA (17:57)
[2018-04-28 17:58] LABS: Creatine Kinase 97 U/L (55-170)
[2018-04-28 18:11] LABS: Creatine Kinase MB 3.5 ng/mL (0.0-2.4); Troponin I <0.012 ng/mL (0.000-0.034)
[2018-04-28 18:28] LABS: Glucose,Whole Blood 112 mg/dL (75-99)
--- NOTE | 2018-04-28 19:52 | XR ---
EXAMINATION TYPE: XR pelvis AP view DATE OF EXAM: 04/28/2018 COMPARISON: NONE HISTORY: Pelvic pain after fall TECHNIQUE: Single view FINDINGS: Pelvic ring is intact. There is vascular calcification. Proximal femurs are intact. I see n o fracture. IMPRESSION: No acute abnormality of the pelvis.
--- NOTE | 2018-04-28 19:53 | XR ---
EXAMINATION TYPE: XR chest 2V DATE OF EXAM: 04/28/2018 COMPARISON: 02/02/2018 HISTORY: Weakness. Fall. TECHNIQUE: Frontal and lateral views of the chest are obtained. FINDINGS: Heart and mediastinum are normal. Lungs are clear. Diaphragm is normal. There are chest le ads. Bony thorax is intact. IMPRESSION: Normal chest. No change. Left nipple shadow noted.
--- NOTE | 2018-04-28 19:56 | CT ---
EXAMINATION TYPE: CT facial bones wo con DATE OF EXAM: 04/28/2018 COMPARISON: 03/21/2018 HISTORY: fall injury CT DLP: 565.46 mGycm Automated exposure control for dose reduction was used. TECHNIQUE: CT scan of the sinuses is performed without contrast, axial images are obtained, coronal r eformatted images are also reviewed. FINDINGS: The orbital margins are intact. There is no evidence of a blowout fracture. There is no dayne dence of orbital mass. Maxilla appears intact. Zygomatic arches appear normal. The nasal bone is inta ct. The mandibular ring appears intact. Temporal bone show normal aeration. There is large sphenoid a nd maxillary sinuses. This is probably normal variation. IMPRESSION: No acute abnormality of the facial bones. No fracture. No change.
--- NOTE | 2018-04-28 19:59 | CT ---
EXAMINATION TYPE: CT brain beata fitch con DATE OF EXAM: 04/28/2018 COMPARISON: 03/21/2018 HISTORY: Fall injury CT DLP: 1612.38 mGycm Automated exposure control for dose reduction was used. TECHNIQUE: CT scan of the head and cervical spine are performed without contrast. FINDINGS: There is mild cerebral cortical atrophy. There is no mass effect nor midline shift. There is no sign of intracranial hemorrhage. Calvarium appears intact. There is mild cervical kyphotic curvature. There is degenerative disc space narrowing throughout the cervical spine. Facet joints are intact. The skull base is intact. I see no bony destructive process. IMPRESSION: Multilevel spondylotic changes in the cervical spine. No fracture. No change. Negative CT scan of the brain. No change. Mild cerebral atrophy.
[2018-04-28 20:53] LABS: Glucose,Whole Blood 96 mg/dL (75-99)
[2018-04-28] MEDS: DEXTROSE 5%-0.45% NACL 1,000 ML IV SCH (22:05)
[2018-04-29] MEDS: DEXTROSE 5%-0.45% NACL 1,000 ML IV SCH ×2 (05:25→16:46)
--- NOTE | 2018-04-29 07:21 | P.HPIM ---
History of Present Illness H&P Date: 04/29/18 Chief Complaint: Alcohol abuse The patient is here essentially for alcoholic intoxication. He claims only drinking one beer daily. I suspect the patient is in denial. Alcohol level was about to 47. He is now seemingly lucid and calm. There is no asterixis noted. The patient otherwise headache. He is not ambulatory at this time. We will increase ambulation today. He continues to be watched for alcohol withdrawal. No history of this in the past. Review of Systems Constitutional: Denies chills, Denies fever Eyes: denies blurred vision, denies pain Ears, nose, mouth and throat: Denies headache, Denies sore throat Cardiovascular: Denies chest pain, Denies shortness of breath Respiratory: Denies cough Musculoskeletal: Reports frequent falls Integumentary: Denies pruritus, Denies rash Past Medical History Past Medical History: GERD/Reflux, Hyperlipidemia, Hypertension, Memory Impairment Additional Past Medical History / Comment(s): etoh History of Any Multi-Drug Resistant Organisms: None Reported Past Surgical History: Tonsillectomy Past Anesthesia/Blood Transfusion Reactions: No Reported Reaction Smoking Status: Current every day smoker - Past Family History Father History Unknown: Yes Additional Family Medical History / Comment(s): - unk cause Mother History Unknown: Yes Additional Family Medical History / Comment(s): pt does'nt know cause Medications and Allergies Home Medications Medication Instructions Recorded Confirmed Type Omeprazole [PriLOSEC] 20 mg PO AC-BRKFST 02/02/18 02/02/18 History amLODIPine [Norvasc] 10 mg PO DAILY 02/02/18 02/02/18 History Atorvastatin [Lipitor] 10 mg PO DAILY #30 tab 02/04/18 Rx Ferrous Sulfate [Feosol] 325 mg PO BID #60 tab 02/04/18 Rx Allergies Allergy/AdvReac Type Severity Reaction Status Date / Time No Known Allergies Allergy Verified 04/28/18 16:51 Physical Exam Vitals: Vital Signs Temp Pulse Pulse Resp BP BP Pulse Ox 04/29/18 06:42 97.8 F 83 16 132/85 97 04/28/18 23:00 97.7 F 75 16 132/74 96 04/28/18 18:49 97.8 F 76 18 136/60 95 04/28/18 16:49 97.5 F L 83 18 138/63 97 Intake and Output 04/28/18 04/29/18 04/29/18 22:59 06:59 14:59 Output Total 2300 Balance -2300 Output: Urine 2300 Other: # Voids 5 # Bowel Movements 0 1 Weight 63.503 kg - Constitutional General appearance: thin - EENT Eyes: EOMI - Neck Neck: no lymphadenopathy - Respiratory Respiratory: bilateral: CTA - Cardiovascular Rhythm: regular Heart sounds: normal: S1, S2 Abnormal Heart Sounds: no S3 Gallop - Gastrointestinal General gastrointestinal: soft, no tenderness - Neurologic Neurologic: CNII-XII intact - Psychiatric Psychiatric: A&O x's 3, no appropriate affect Results CBC & Chem 7: 04/28/18 16:46 04/28/18 16:46 Labs: Abnormal Lab Results - Last 24 Hours (Table) 04/28/18 04/28/18 04/28/18 Range/Units 16:45 16:46 16:46 MCV (80.0-100.0) fL RDW (11.5-15.5) % Sodium 125 L (137-145) mmol/L Chloride 80 L* (98-107) mmol/L BUN 5 L (9-20) mg/dL Creatinine 0.52 L (0.66-1.25) mg/dL Glucose 44 L* (74-99) mg/dL POC Glucose (mg/dL) 57 L (75-99) mg/dL CK-MB (CK-2) 3.5 H* (0.0-2.4) ng/mL 04/28/18 04/28/18 04/28/18 Range/Units 16:46 17:25 18:26 MCV 79.9 L (80.0-100.0) fL RDW 21.9 H (11.5-15.5) % Sodium (137-145) mmol/L Chloride (98-107) mmol/L BUN (9-20) mg/dL Creatinine (0.66-1.25) mg/dL Glucose (74-99) mg/dL POC Glucose (mg/dL) 103 H 112 H (75-99) mg/dL CK-MB (CK-2) (0.0-2.4) ng/mL Thrombosis Risk Factor Assmnt - Choose All That Apply Any of the Below Risk Factors Present?: Yes Each Risk Factor Represents 2 Points: Age 61-74 years Thrombosis Risk Factor Assessment Total Risk Factor Score: 2 Thrombosis Risk Factor Assessment Level: Low Risk Assessment and Plan (1) Alcohol abuse Current Visit: Yes Status: Acute Code(s): F10.10 - ALCOHOL ABUSE, UNCOMPLICATED SNOMED Code(s): 21297358 (2) Altered mental status Current Visit: Yes Status: Acute Code(s): R41.82 - ALTERED MENTAL STATUS, UNSPECIFIED SNOMED Code(s): 846562719 (3) Fall Current Visit: Yes Status: Acute Code(s): W19.XXXA - UNSPECIFIED FALL, INITIAL ENCOUNTER SNOMED Code(s): 1634469 (4) Hyponatremia Current Visit: Yes Status: Acute Code(s): E87.1 - HYPO-OSMOLALITY AND HYPONATREMIA SNOMED Code(s): 33331641 (5) Weakness Current Visit: Yes Status: Acute Code(s): R53.1 - WEAKNESS SNOMED Code(s) : 55817284 Plan: I'll call abuse with weakness. We will ask physical therapy to see the patient for ambulation. Continue appropriate hydration status. Regular diet. Check CMP this morning. I advised the patient at length about alcohol abuse. He still seems to be in denial about the amount he actually drinks. corrections caseworker consultation. Time with Patient: Less than 30
[2018-04-29 07:24] LABS: Glucose,Whole Blood 123 mg/dL (75-99)
[2018-04-29] MEDS ORDERED: ENOXAPARIN 40 MG/0.4 ML SYRINGE SQ SCH (09:00)
[2018-04-29 09:41] LABS: ALT 39 U/L (21-72); AST 34 U/L (17-59); Albumin 4.3 g/dL (3.5-5.0); Alkaline Phosphatase 82 U/L (38-126); Anion Gap 14 mmol/L; Blood Urea Nitrogen 4 mg/dL (9-20); Carbon Dioxide 26 mmol/L (22-30); Chloride 89 mmol/L (98-107); Glucose 124 mg/dL (74-99); Potassium 3.8 mmol/L (3.5-5.1); Sodium 129 mmol/L (137-145); Total Bilirubin 0.5 mg/dL (0.2-1.3); Total Protein 6.7 g/dL (6.3-8.2)
[2018-04-29] MEDS: THIAMINE 100 MG TAB PO SCH ×2 (11:20→16:57)
[2018-04-29 15:33] VITALS: BP 164/78; PULSE 88; RESP 17; TEMP 98.1
== END 2018-04-29 17:46 | disposition left against medical advice (07) | DRG 894 ==
LOC: EC 16:33 → 4MS4W 17:57
PROVIDERS: ADMIT Family Medicine; ATTEND Family Medicine
DX: F10.229 Alcohol dependence with intoxication, unspecified (principal); E87.1 Hypo-osmolality and hyponatremia; E16.2 Hypoglycemia, unspecified; E78.5 Hyperlipidemia, unspecified; F17.200 Nicotine dependence, unspecified, uncomplicated; I10 Essential (primary) hypertension; K21.9 Gastro-esophageal reflux disease without esophagitis; R29.6 Repeated falls; W19.XXXA Unspecified fall, initial encounter; Z79.899 Other long term (current) drug therapy; Y90.8 Blood alcohol level of 240 mg/100 ml or more
CPT/HCPCS: 36415; 70450; 70486; 71046; 72125; 72170; 80053; 80320; 82550; 82553; 83735; 84100; 84484; 85025; 85610; 85730; 93005; 96360; 96361; 96372; 99285

== ENCOUNTER 2018-06-18 16:28 | Emergency (ER) | payer MEDICARE ==
[2018-06-18 16:46] VITALS: BP 135/63; PULSE 81; RESP 16; TEMP 97.6
--- NOTE | 2018-06-18 17:27 | ED ---
General Adult HPI - General Chief complaint: Fall Stated complaint: weakness Time Seen by Provider: 06/18/18 16:58 Source: patient, EMS, RN notes reviewed Mode of arrival: EMS Limitations: no limitations - History of Present Illness Initial comments: 67-year-old male presents to the emergency department for a chief complaint of fall about one hour ago. Patient denies any pain at this time. Patient denies hitting his head or being on blood thinners. Patient states he fell onto his hands and knees. Patient states his called the ambulance. Patient states he took two 0.5 mg Ativan today at once which may have caused him to fall. Patient states he just got the prescription today. He states he has prescribed this for "shakiness." Patient states he was walking to the bed when he tripped over a rug. He states the rug was damp and flips upward which caused him to trip. Patient denies any weakness or confusion at this time. Patient denies drinking any alcohol today. Patient states he feels absolutely fine and wants to go home. Patient has no other complaints at this time including shortness of breath, chest pain, abdominal pain, nausea or vomiting, headache, or visual changes. - Related Data Home Medications Medication Instructions Recorded Confirmed Omeprazole [PriLOSEC] 20 mg PO [id number] 02/02/18 04/29/18 amLODIPine [Norvasc] 10 mg PO DAILY 02/02/18 04/29/18 Previous Rx's Medication Instructions Recorded Atorvastatin [Lipitor] 10 mg PO DAILY #30 tab 02/04/18 Ferrous Sulfate [Feosol] 325 mg PO BID #60 tab 02/04/18 Allergies Allergy/AdvReac Type Severity Reaction Status Date / Time No Known Allergies Allergy Verified 06/18/18 16:46 Review of Systems ROS Statement: Those systems with pertinent positive or pertinent negative responses have been documented in the HPI. ROS Other: All systems not noted in ROS Statement are negative. Past Medical History Past Medical History: GERD/Reflux, Hyperlipidemia, Hypertension, Memory Impairment Additional Past Medical History / Comment(s): etoh History of Any Multi-Drug Resistant Organisms: None Reported Past Surgical History: Tonsillectomy Past Anesthesia/Blood Transfusion Reactions: No Reported Reaction Past Psychological History: No Psychological Hx Reported Smoking Status: Current every day smoker Past Alcohol Use History: Occasional Past Drug Use History: None Reported - Past Family History Father History Unknown: Yes Additional Family Medical History / Comment(s): - unk cause Mother History Unknown: Yes Additional Family Medical History / Comment(s): pt does'nt know cause General Exam Limitations: no limitations General appearance: alert, in no apparent distress Head exam: Present: atraumatic (No evidence of contusion or ecchymosis.), normocephalic, normal inspection Eye exam: Present: normal appearance, PERRL, EOMI. Absent: scleral icterus, conjunctival injection, nystagmus, periorbital swelling, periorbital tenderness ENT exam: Present: normal exam, normal oropharynx (Uvula midline), mucous membranes moist, TM's normal bilaterally, normal external ear exam Neck exam: Present: normal inspection, full ROM. Absent: tenderness, meningismus, lymphadenopathy Respiratory exam: Present: normal lung sounds bilaterally. Absent: respiratory distress, wheezes, rales, rhonchi, stridor Cardiovascular Exam: Present: regular rate, normal rhythm, normal heart sounds. Absent: systolic murmur, diastolic murmur, rubs, gallop, clicks GI/Abdominal exam: Present: soft, normal bowel sounds. Absent: distended, tenderness, guarding, rebound, rigid Extremities exam: Present: normal inspection, full ROM (Full range of motion of all extremities.), normal capillary refill, other (No ecchymosis noted on patient.). Absent: tenderness (No tenderness in all joints or extremities.), pedal edema, joint swelling, calf tenderness Back exam: Absent: tenderness Neurological exam: Present: alert, oriented X3, CN II-XII intact, other (GCS 15) . Absent: motor sensory deficit Psychiatric exam: Present: normal affect, normal mood Skin exam: Present: warm, dry, intact, normal color. Absent: rash Course Vital Signs 06/18/18 16:43 Temperature 97.6 F Pulse Rate 81 Respiratory 16 Rate Blood Pressure 135/63 O2 Sat by Pulse 95 Oximetry Medical Decision Making - Medical Decision Making 67-year-old male presents to the emergency department for a chief complaint of fall today. Patient denies hitting his head or any injuries. Patient states he is feeling actually fine and wants to go home. Patient denies any weakness or confusion. Patient denies drinking any alcohol today. Patient states that he did have 2 Ativan which are new to him. On exam no focal neuro deficits. GCS 15. No evidence of trauma or contusion. Patient moving all extremities without difficulty. Patient was admitted twice for the past 6 months for falls due to hyponatremia. Basic labs were obtained. Sodium 122 and chloride 83. Potassium 3.7. Strongly recommended patient be admitted for hyponatremia. Stated risks include dizziness and falling. Patient refuses admission. He states adamantly he wants to go home and does not feel dizzy. Patient refusing admission, leaving AMA. He was advised to return to the emergency department or any emergency department if he begins to feel dizzy or have any worsening symptoms. He is aware of this and will follow up with primary care as well. - Lab Data Result diagrams: 06/18/18 17:40 06/18/18 17:40 Lab Results 06/18/18 06/18/18 Range/Units 17:40 17:40 WBC 7.9 (3.8-10.6) k/uL RBC 3.98 L (4.30-5.90) m/uL Hgb 11.1 L (13.0-17.5) gm/dL Hct 32.7 L (39.0-53.0) % MCV 82.1 (80.0-100.0) fL MCH 28.0 (25.0-35.0) pg MCHC 34.1 (31.0-37.0) g/dL RDW 17.4 H (11.5-15.5) % Plt Count 326 (150-450) k/uL Neutrophils % 81 % Lymphocytes % 6 % Monocytes % 9 % Eosinophils % 2 % Basophils % 0 % Neutrophils # 6.4 (1.3-7.7) k/uL Lymphocytes # 0.4 L (1.0-4.8) k/uL Monocytes # 0.7 (0-1.0) k/uL Eosinophils # 0.2 (0-0.7) k/uL Basophils # 0.0 (0-0.2) k/uL Anisocytosis Slight Microcytosis Slight Sodium 122 L (137-145) mmol/L Potassium 3.7 (3.5-5.1) mmol/L Chloride 83 L (98-107) mmol/L Carbon Dioxide 25 (22-30) mmol/L Anion Gap 14 mmol/L BUN 11 (9-20) mg/dL Creatinine 0.50 L (0.66-1.25) mg/dL Est GFR (CKD-EPI)AfAm >90 (>60 ml/min/1.73 sqM) Est GFR (CKD-EPI)NonAf >90 (>60 ml/min/1.73 sqM) Glucose 89 (74-99) mg/dL Calcium 8.9 (8.4-10.2) mg/dL Total Bilirubin 0.5 (0.2-1.3) mg/dL AST 25 (17-59) U/L ALT 31 (21-72) U/L Alkaline Phosphatase 77 (38-126) U/L Total Protein 6.3 (6.3-8.2) g/dL Albumin 4.2 (3.5-5.0) g/dL Disposition Clinical Impression: Hyponatremia, Fall Disposition: Left Against Medical Advice Condition: Good Additional Instructions: Please return immediately to the emergency department or any emergency department if you have any worsening symptoms or dizziness. Do not take more than one Ativan as written on your prescription bottle by your primary provider. Is patient prescribed a controlled substance at d/c from ED?: No Referrals: Bubba Aj MD [Primary Care Provider] - 1-2 days Time of Disposition: 18:30
[2018-06-18 17:56] LABS: Anisocytosis Slight; Basophils % (A) 0 %; Eosinophils # (A) 0.2 k/uL (0-0.7); Eosinophils % (A) 2 %; HCT 32.7 % (39.0-53.0); HGB 11.1 gm/dL (13.0-17.5); Lymphocytes # (A) 0.4 k/uL (1.0-4.8); Lymphocytes % (A) 6 %; MCHC 34.1 g/dL (31.0-37.0); MCV 82.1 fL (80.0-100.0); Mean Platelet Volume 6.3; Microcytosis Slight; Monocytes # (A) 0.7 k/uL (0-1.0); Monocytes % (A) 9 %; Neutrophils # (A) 6.4 k/uL (1.3-7.7); Neutrophils % (A) 81 %; Platelet Count 326 k/uL (150-450); RBC 3.98 m/uL (4.30-5.90); RDW 17.4 % (11.5-15.5); WBC 7.9 k/uL (3.8-10.6)
[2018-06-18 18:06] LABS: ALT 31 U/L (21-72); AST 25 U/L (17-59); Albumin 4.2 g/dL (3.5-5.0); Alkaline Phosphatase 77 U/L (38-126); Anion Gap 14 mmol/L; Blood Urea Nitrogen 11 mg/dL (9-20); Calcium 8.9 mg/dL (8.4-10.2); Carbon Dioxide 25 mmol/L (22-30); Chloride 83 mmol/L (98-107); Glucose 89 mg/dL (74-99); Potassium 3.7 mmol/L (3.5-5.1); Sodium 122 mmol/L (137-145); Total Bilirubin 0.5 mg/dL (0.2-1.3); Total Protein 6.3 g/dL (6.3-8.2)
== END 2018-06-18 18:30 | disposition left against medical advice (07) ==
LOC: EC 16:28
DX: E87.1 Hypo-osmolality and hyponatremia (principal); K21.9 Gastro-esophageal reflux disease without esophagitis; I10 Essential (primary) hypertension; F17.200 Nicotine dependence, unspecified, uncomplicated; Z79.899 Other long term (current) drug therapy; W19.XXXA Unspecified fall, initial encounter
CPT/HCPCS: 36415; 80053; 85025; 99284

== ENCOUNTER 2018-06-23 10:04 | Inpatient (IN) | payer MEDICARE ==
[2018-06-23] MEDS ORDERED: SODIUM CHLORIDE 0.9% 1,000 ML with MVI, ADULT NO.4 WITH VIT K 10 ML, THIAMINE 100 MG, F... IV ONE ×4 (10:17)
--- NOTE | 2018-06-23 10:21 | ED ---
General Adult HPI - General Chief complaint: Psychiatric Symptoms Stated complaint: FALL Time Seen by Provider: 06/23/18 10:11 Source: patient, police, EMS, RN notes reviewed Mode of arrival: EMS Limitations: no limitations - History of Present Illness Initial comments: Patient is a pleasant 67-year-old male presenting to the emergency department for frequent falls. Patient is brought in by police and petition is filled out. Patient reportedly does drink alcohol frequently. Patient states he rarely drinks alcohol. Patient denies any complaints other than frequently falling. Patient denies any injury. No neck or back pain. No chest pain or dyspnea. No abdominal pain. Patient denies any confusion. - Related Data Home Medications Medication Instructions Recorded Confirmed Omeprazole [PriLOSEC] 20 mg PO DAILY 02/02/18 06/23/18 amLODIPine [Norvasc] 10 mg PO DAILY 02/02/18 06/23/18 LORazepam [Ativan] 0.5 mg PO BID PRN 06/23/18 06/23/18 Previous Rx's Medication Instructions Recorded Atorvastatin [Lipitor] 10 mg PO DAILY #30 tab 02/04/18 Allergies Allergy/AdvReac Type Severity Reaction Status Date / Time No Known Allergies Allergy Verified 06/23/18 11:35 Review of Systems ROS Statement: Those systems with pertinent positive or pertinent negative responses have been documented in the HPI. ROS Other: All systems not noted in ROS Statement are negative. Constitutional: Denies: fever Eyes: Denies: eye pain ENT: Denies: ear pain Respiratory: Denies: cough Cardiovascular: Denies: chest pain Endocrine: Denies: fatigue Gastrointestinal: Denies: abdominal pain Genitourinary: Denies: dysuria Musculoskeletal: Denies: back pain Skin: Denies: rash Neurological: Denies: headache Past Medical History Past Medical History: GERD/Reflux, Hyperlipidemia, Hypertension, Memory Impairment Additional Past Medical History / Comment(s): etoh History of Any Multi-Drug Resistant Organisms: None Reported Past Surgical History: Tonsillectomy Past Anesthesia/Blood Transfusion Reactions: No Reported Reaction Past Psychological History: No Psychological Hx Reported Smoking Status: Current every day smoker Past Alcohol Use History: Occasional Past Drug Use History: None Reported - Past Family History Father History Unknown: Yes Additional Family Medical History / Comment(s): - unk cause Mother History Unknown: Yes Additional Family Medical History / Comment(s): pt does'nt know cause General Exam Limitations: no limitations General appearance: alert, in no apparent distress Head exam: Present: atraumatic Eye exam: Present: normal appearance, PERRL, EOMI ENT exam: Present: normal oropharynx Neck exam: Present: normal inspection. Absent: tenderness Respiratory exam: Present: normal lung sounds bilaterally Cardiovascular Exam: Present: regular rate, normal rhythm GI/Abdominal exam: Present: soft. Absent: tenderness Extremities exam: Present: normal inspection Neurological exam: Present: alert, oriented X3, CN II-XII intact, abnormal gait (atalgic gait). Absent: motor sensory deficit Psychiatric exam: Present: normal affect, normal mood Skin exam: Present: normal color Course Vital Signs 06/23/18 10:07 Temperature 98.4 F Pulse Rate 65 Respiratory 16 Rate Blood Pressure 155/70 O2 Sat by Pulse 99 Oximetry EKG Findings - EKG Comments: EKG Findings:: Normal sinus rhythm 78. VT 164. QRS 78. QT 460. QTC 524. Normal axis. Poor R-wave progression. No acute ST change. Some motion artifact is present. Medical Decision Making - Medical Decision Making Patient reevaluated and updated. Case discussed with Dr. Aj, who will admit his patient. - Lab Data Result diagrams: 06/23/18 10:34 06/23/18 10:34 Lab Results 06/23/18 06/23/18 06/23/18 Range/Units 10:34 10:34 10:34 WBC 7.3 (3.8-10.6) k/uL RBC 4.11 L (4.30-5.90) m/uL Hgb 11.8 L (13.0-17.5) gm/dL Hct 34.6 L (39.0-53.0) % MCV 84.2 (80.0-100.0) fL MCH 28.7 (25.0-35.0) pg MCHC 34.1 (31.0-37.0) g/dL RDW 16.9 H (11.5-15.5) % Plt Count 323 (150-450) k/uL Neutrophils % 83 % Lymphocytes % 5 % Monocytes % 8 % Eosinophils % 1 % Basophils % 0 % Neutrophils # 6.1 (1.3-7.7) k/uL Lymphocytes # 0.4 L (1.0-4.8) k/uL Monocytes # 0.6 (0-1.0) k/uL Eosinophils # 0.1 (0-0.7) k/uL Basophils # 0.0 (0-0.2) k/uL Anisocytosis Slight PT 10.9 (9.0-12.0) sec INR 1.1 (<1.2) APTT 24.9 (22.0-30.0) sec Sodium 127 L (137-145) mmol/L Potassium 3.2 L (3.5-5.1) mmol/L Chloride 83 L (98-107) mmol/L Carbon Dioxide 32 H (22-30) mmol/L Anion Gap 12 mmol/L BUN 15 (9-20) mg/dL Creatinine 0.62 L (0.66-1.25) mg/dL Est GFR (CKD-EPI)AfAm >90 (>60 ml/min/1.73 sqM) Est GFR (CKD-EPI)NonAf >90 (>60 ml/min/1.73 sqM) Glucose 97 (74-99) mg/dL Calcium 9.4 (8.4-10.2) mg/dL Magnesium 1.5 L (1.6-2.3) mg/dL Total Bilirubin 1.3 (0.2-1.3) mg/dL AST 46 (17-59) U/L ALT 46 (21-72) U/L Alkaline Phosphatase 87 (38-126) U/L Total Protein 6.5 (6.3-8.2) g/dL Albumin 4.0 (3.5-5.0) g/dL Urine Color Urine Appearance (Clear) Urine pH (5.0-8.0) Ur Specific [place] (1.001-1.035) Urine Protein (Negative) Urine Glucose (UA) (Negative) Urine Ketones (Negative) Urine Blood (Negative) Urine Nitrite (Negative) Urine Bilirubin (Negative) Urine Urobilinogen (<2.0) mg/dL Ur Leukocyte Esterase (Negative) Urine Opiates Screen (NotDetected) Ur Oxycodone Screen (NotDetected) Urine Methadone Screen (NotDetected) Ur Propoxyphene Screen (NotDetected) Ur Barbiturates Screen (NotDetected) U Tricyclic Antidepress (NotDetected) Ur Phencyclidine Scrn (NotDetected) Ur Amphetamines Screen (NotDetected) U Methamphetamines Scrn (NotDetected) U Benzodiazepines Scrn (NotDetected) Urine Cocaine Screen (NotDetected) U Marijuana (THC) Screen (NotDetected) 06/23/18 Range/Units 10:40 WBC (3.8-10.6) k/uL RBC (4.30-5.90) m/uL Hgb (13.0-17.5) gm/dL Hct (39.0-53.0) % MCV (80.0-100.0) fL MCH (25.0-35.0) pg MCHC (31.0-37.0) g/dL RDW (11.5-15.5) % Plt Count (150-450) k/uL Neutrophils % % Lymphocytes % % Monocytes % % Eosinophils % % Basophils % % Neutrophils # (1.3-7.7) k/uL Lymphocytes # (1.0-4.8) k/uL Monocytes # (0-1.0) k/uL Eosinophils # (0-0.7) k/uL Basophils # (0-0.2) k/uL Anisocytosis PT (9.0-12.0) sec INR (<1.2) APTT (22.0-30.0) sec Sodium (137-145) mmol/L Potassium (3.5-5.1) mmol/L Chloride (98-107) mmol/L Carbon Dioxide (22-30) mmol/L Anion Gap mmol/L BUN (9-20) mg/dL Creatinine (0.66-1.25) mg/dL Est GFR (CKD-EPI)AfAm (>60 ml/min/1.73 sqM) Est GFR (CKD-EPI)NonAf (>60 ml/min/1.73 sqM) Glucose (74-99) mg/dL Calcium (8.4-10.2) mg/dL Magnesium (1.6-2.3) mg/dL Total Bilirubin (0.2-1.3) mg/dL AST (17-59) U/L ALT (21-72) U/L Alkaline Phosphatase (38-126) U/L Total Protein (6.3-8.2) g/dL Albumin (3.5-5.0) g/dL Urine Color Yellow Urine Appearance Clear (Clear) Urine pH 6.0 (5.0-8.0) Ur Specific [place] 1.011 (1.001-1.035) Urine Protein Negative (Negative) Urine Glucose (UA) Negative (Negative) Urine Ketones 1+ H (Negative) Urine Blood Negative (Negative) Urine Nitrite Negative (Negative) Urine Bilirubin Negative (Negative) Urine Urobilinogen <2.0 (<2.0) mg/dL Ur Leukocyte Esterase Negative (Negative) Urine Opiates Screen Not Detected (NotDetected) Ur Oxycodone Screen Not Detected (NotDetected) Urine Methadone Screen Not Detected (NotDetected) Ur Propoxyphene Screen Not Detected (NotDetected) Ur Barbiturates Screen Not Detected (NotDetected) U Tricyclic Antidepress Not Detected (NotDetected) Ur Phencyclidine Scrn Not Detected (NotDetected) Ur Amphetamines Screen Not Detected (NotDetected) U Methamphetamines Scrn Not Detected (NotDetected) U Benzodiazepines Scrn Detected H (NotDetected) Urine Cocaine Screen Not Detected (NotDetected) U Marijuana (THC) Screen Not Detected (NotDetected) - Radiology Data Radiology results: report reviewed (Computed tomography scan of the brain shows redemonstrated mild generalized atrophy and chronic small vessel ischemia. No acute process.), image reviewed (chest x-ray shows no acute process) Disposition Clinical Impression: Weakness, Fall, Hyponatremia Disposition: ADMITTED IP TO THIS [facility] Is patient prescribed a controlled substance at d/c from ED?: No Referrals: Bubba Aj MD [Primary Care Provider] - 1-2 days Decision Time: 11:44
[2018-06-23 11:15] LABS: Anisocytosis Slight; Basophils % (A) 0 %; Eosinophils # (A) 0.1 k/uL (0-0.7); Eosinophils % (A) 1 %; HCT 34.6 % (39.0-53.0); HGB 11.8 gm/dL (13.0-17.5); Lymphocytes # (A) 0.4 k/uL (1.0-4.8); Lymphocytes % (A) 5 %; MCH 28.7 pg (25.0-35.0); MCHC 34.1 g/dL (31.0-37.0); MCV 84.2 fL (80.0-100.0); Monocytes # (A) 0.6 k/uL (0-1.0); Monocytes % (A) 8 %; Neutrophils # (A) 6.1 k/uL (1.3-7.7); Neutrophils % (A) 83 %; Platelet Count 323 k/uL (150-450); RBC 4.11 m/uL (4.30-5.90); RDW 16.9 % (11.5-15.5); WBC 7.3 k/uL (3.8-10.6)
[2018-06-23 11:21] LABS: Appearance,Urine Clear (Clear); Bilirubin,Urine Negative (Negative); Blood,Urine Negative (Negative); Color,Urine Yellow; Glucose,Urine (UA) Negative (Negative); Ketones,Urine 1+ (Negative); Leukocyte Esterase,Urine Negative (Negative); Nitrite,Urine Negative (Negative); Protein,Urine Negative (Negative); Specific Gravity,Urine 1.011 (1.001-1.035); Urobilinogen,Urine <2.0 mg/dL (<2.0)
[2018-06-23 11:22] LABS: INR 1.1 (<1.2); Partial Thromboplastin Time 24.9 sec (22.0-30.0); Prothrombin Time 10.9 sec (9.0-12.0)
[2018-06-23 11:23] LABS: ALT 46 U/L (21-72); AST 46 U/L (17-59); Alkaline Phosphatase 87 U/L (38-126); Anion Gap 12 mmol/L; Blood Urea Nitrogen 15 mg/dL (9-20); Calcium 9.4 mg/dL (8.4-10.2); Carbon Dioxide 32 mmol/L (22-30); Chloride 83 mmol/L (98-107); Glucose 97 mg/dL (74-99); Magnesium 1.5 mg/dL (1.6-2.3); Potassium 3.2 mmol/L (3.5-5.1); Sodium 127 mmol/L (137-145); Total Bilirubin 1.3 mg/dL (0.2-1.3); Total Protein 6.5 g/dL (6.3-8.2)
--- NOTE | 2018-06-23 11:23 | CT ---
EXAMINATION TYPE: CT brain wo con DATE OF EXAM: 06/23/2018 COMPARISON: 04/28/2018 HISTORY: 67-year-old male with pain after Fall TECHNIQUE: Examination was done in axial plane without intravenous contrast. Coronal and sagittal r econstructions performed. CT DLP: 981.7 mGycm Automated exposure control for dose reduction was used. FINDINGS: There is no evidence of acute intracranial hemorrhage, acute ischemic changes, mass, mass-effect, or extra-axial fluid collection. There is no effacement of cerebral sulci or basal subarachnoid cister ns. There is no hydrocephalus. There is no midline shift. Huitron-white matter distinction is preserv ed. Mild generalized supratentorial volume loss redemonstrated. Mild patchy periventricular white matter hypodensities. Paranasal sinuses and mastoid air cells are pneumatized. Orbits and globes are intact. IMPRESSION: Similar mild generalized cerebral atrophy and mild changes of chronic small vessel ischemic disease. No acute intracranial abnormality seen.
[2018-06-23 11:30] LABS: Amphetamine Screen,Urine Not Detected (NotDetected); Barbiturate Screen,Urine Not Detected (NotDetected); Benzodiazepines Screen,Urine Detected (NotDetected); Cocaine Screen,Urine Not Detected (NotDetected); Methadone Screen, Urine Not Detected (NotDetected); Opiate Screen,Urine Not Detected (NotDetected); Oxycodone Screen, Urine Not Detected (NotDetected); Phencyclidine Screen,Urine Not Detected (NotDetected); Tricyclic Antidepressant,Urine Not Detected (NotDetected); Urn Cannabinoid Scrn Not Detected (NotDetected)
[2018-06-23] MEDS ORDERED: MAGNESIUM OXIDE 400 MG TAB PO STA (11:31)
[2018-06-23] MEDS ORDERED: POTASSIUM CHLORIDE ER 20 MEQ TAB.ER PO STA (11:44)
[2018-06-23] MEDS ORDERED: NALOXONE 0.4 MG/ML 1 ML VIAL IV PRN (11:44)
--- NOTE | 2018-06-23 11:44 | XR ---
EXAMINATION TYPE: XR chest 2V DATE OF EXAM: 06/23/2018 COMPARISON: Chest x-ray April 28, 2018. HISTORY: Weakness and fall today. TECHNIQUE: Frontal and lateral views of the chest are obtained. FINDINGS: Underlying chronic emphysematous change is felt present. There is no focal air space opaci ty, pleural effusion, or pneumothorax seen. Symmetric overlying nodular densities favor patient nippl es. The cardiac silhouette size is within normal limits. Slight underlying scoliotic curvature is pr esent. IMPRESSION: Chronic emphysematous change without acute pulmonary process.
[2018-06-23] MEDS: SODIUM CHLORIDE 0.9% 1,000 ML IV SCH (13:33)
[2018-06-23] MEDS ORDERED: LORazepam 0.5 MG TAB PO PRN (13:43)
[2018-06-23] MEDS: amLODIPine 10 MG TAB PO SCH (14:16)
[2018-06-23] MEDS: PANTOPRAZOLE 40 MG TABLET PO SCH (14:16)
[2018-06-24] MEDS: SODIUM CHLORIDE 0.9% 1,000 ML IV SCH ×2 (06:16→13:32)
--- NOTE | 2018-06-24 07:49 | P.HPIM ---
History of Present Illness H&P Date: 06/24/18 Chief Complaint: Weakness with multiple falling. This is a history of physical on a 67-year-old white male with supposed history of ethanol abuse. His family states that he does have difficulty with ethanol but, the patient denies that he has been drinking at all recently. However, he is brought in for evaluation secondary to multiple falls and weakness. The patient states he has a walker but did not use it at this time.. No true loss of consciousness no overt dizziness stated. But he states more instability recently. Physical therapy is now consulted. We will ask community mental health social worker to see the patient at this time. Question element of altered mental status. He seems somewhat demure this morning. Review of Systems Cardiovascular: Denies shortness of breath Respiratory: Denies congestion Gastrointestinal: Denies abdominal pain, Denies diarrhea, Denies nausea, Denies vomiting Musculoskeletal: Reports frequent falls, Reports muscle weakness, Denies myalgias Integumentary: Denies pruritus, Denies rash Neurological: Denies numbness, Denies weakness Psychiatric: Denies anxiety, Denies depression Endocrine: Denies fatigue, Denies weight change Past Medical History Past Medical History: GERD/Reflux, Hyperlipidemia, Hypertension, Memory Impairment Additional Past Medical History / Comment(s): etoh History of Any Multi-Drug Resistant Organisms: None Reported Past Surgical History: Tonsillectomy Past Anesthesia/Blood Transfusion Reactions: No Reported Reaction Past Psychological History: No Psychological Hx Reported Smoking Status: Current every day smoker Past Alcohol Use History: Occasional Additional Past Alcohol Use History / Comment(s): pt stated he drinks one beer per day or every 3 days and daughter stated he drinks more than that. daughter reports she does not think he was drinking today but she thinks he usually drink 4-6 beers a day. pt started smoking as teen- currently smokes 3 cig per day Past Drug Use History: None Reported - Past Family History Father History Unknown: Yes Additional Family Medical History / Comment(s): parents are Mother History Unknown: Yes Additional Family Medical History / Comment(s): parent are , history unknown Medications and Allergies Home Medications Medication Instructions Recorded Confirmed Type Omeprazole [PriLOSEC] 20 mg PO DAILY 02/02/18 06/23/18 History amLODIPine [Norvasc] 10 mg PO DAILY 02/02/18 06/23/18 History Atorvastatin [Lipitor] 10 mg PO DAILY #30 tab 02/04/18 06/23/18 Rx LORazepam [Ativan] 0.5 mg PO BID PRN 06/23/18 06/23/18 History Allergies Allergy/AdvReac Type Severity Reaction Status Date / Time No Known Allergies Allergy Verified 06/23/18 11:35 Physical Exam Vitals: Vital Signs Temp Pulse Pulse Resp BP BP Pulse Ox 06/24/18 05:50 97.9 F 76 14 120/70 97 06/23/18 22:24 98.1 F 75 14 107/65 97 06/23/18 15:22 16 06/23/18 14:18 97.7 F 64 18 147/65 99 06/23/18 13:15 96.8 F L 64 16 156/81 95 06/23/18 10:07 98.4 F 65 16 155/70 99 Intake and Output 06/23/18 06/24/18 06/24/18 22:59 06:59 14:59 Output Total 100 200 Balance -100 -200 Output: Urine 100 200 Other: Voiding Method Urinal Incontinent # Voids 3 # Bowel Movements 1 - Constitutional General appearance: thin - EENT Eyes: EOMI - Neck Neck: no lymphadenopathy - Cardiovascular Rhythm: regular Heart sounds: normal: S1, S2 Abnormal Heart Sounds: no S3 Gallop - Gastrointestinal General gastrointestinal: soft, no tenderness - Neurologic Neurologic: CNII-XII intact Results CBC & Chem 7: 06/23/18 10:34 06/23/18 10:34 Labs: Abnormal Lab Results - Last 24 Hours (Table) 06/23/18 06/23/18 06/23/18 Range/Units 10:34 10:34 10:40 RBC 4.11 L (4.30-5.90) m/uL Hgb 11.8 L (13.0-17.5) gm/dL Hct 34.6 L (39.0-53.0) % RDW 16.9 H (11.5-15.5) % Lymphocytes # 0.4 L (1.0-4.8) k/uL Sodium 127 L (137-145) mmol/L Potassium 3.2 L (3.5-5.1) mmol/L Chloride 83 L (98-107) mmol/L Carbon Dioxide 32 H (22-30) mmol/L Creatinine 0.62 L (0.66-1.25) mg/dL Magnesium 1.5 L (1.6-2.3) mg/dL Urine Ketones 1+ H (Negative) U Benzodiazepines Scrn Detected H (NotDetected) Thrombosis Risk Factor Assmnt - Choose All That Apply Any of the Below Risk Factors Present?: No Assessment and Plan (1) Anxiety Current Visit: Yes Status: Acute Code(s): F41.9 - ANXIETY DISORDER, UNSPECIFIED SNOMED Code(s): 70703123 (2) Fall Current Visit: Yes Status: Acute Code(s): W19.XXXA - UNSPECIFIED FALL, INITIAL ENCOUNTER SNOMED Code(s): 2425765 (3) Weakness Current Visit: Yes Status: Acute Code(s): R53.1 - WEAKNESS SNOMED Code(s) : 90955592 (4) Alcohol abuse Current Visit: No Status: Acute Code(s): F10.10 - ALCOHOL ABUSE, UNCOMPLICATED SNOMED Code(s): 65085734 Plan: Given that his medical findings are nonspecific, we'll increase ambulation and start physical therapy today. I had a long discussion with the patient to refrain from alcohol and make sure that he uses his walker appropriately. Laboratory examinations not show significant issue. Anticipate discharge in next 24 hours unless he shows instability and will require some type of rehabilitation. The patient is otherwise full code. Time with Patient: Greater than 30
[2018-06-24 07:58] LABS: Anion Gap 9 mmol/L; Blood Urea Nitrogen 12 mg/dL (9-20); Carbon Dioxide 33 mmol/L (22-30); Chloride 87 mmol/L (98-107); Glucose 107 mg/dL (74-99); Magnesium 1.5 mg/dL (1.6-2.3); Potassium 3.1 mmol/L (3.5-5.1); Sodium 129 mmol/L (137-145)
[2018-06-24] MEDS: PANTOPRAZOLE 40 MG TABLET PO SCH (08:24)
[2018-06-24] MEDS: amLODIPine 10 MG TAB PO SCH (08:24)
[2018-06-24] MEDS: ATORVASTATIN 10 MG TAB PO SCH (08:24)
[2018-06-24] MEDS: POTASSIUM CHLORIDE 10 MEQ in WATER FOR INJECTION 1 100ML.BAG IVPB SCH ×4 (08:25→13:28)
[2018-06-24] MEDS: POTASSIUM CHLORIDE ER 20 MEQ TAB.ER PO SCH ×2 (17:26→18:18)
[2018-06-25] MEDS: SODIUM CHLORIDE 0.9% 1,000 ML IV SCH (03:15)
[2018-06-25] MEDS: amLODIPine 10 MG TAB PO SCH (07:48)
[2018-06-25] MEDS: ATORVASTATIN 10 MG TAB PO SCH (07:48)
[2018-06-25] MEDS: PANTOPRAZOLE 40 MG TABLET PO SCH (07:48)
[2018-06-25 08:32] LABS: Albumin 3.7 g/dL (3.5-5.0); Anion Gap 9 mmol/L; Blood Urea Nitrogen 9 mg/dL (9-20); Calcium 9.1 mg/dL (8.4-10.2); Carbon Dioxide 29 mmol/L (22-30); Chloride 94 mmol/L (98-107); Glucose 122 mg/dL (74-99); Sodium 132 mmol/L (137-145); Total Bilirubin 0.7 mg/dL (0.2-1.3); Total Protein 6.1 g/dL (6.3-8.2)
[2018-06-25 08:33] LABS: ALT 35 U/L (21-72); AST 29 U/L (17-59); Alkaline Phosphatase 76 U/L (38-126); Magnesium 1.3 mg/dL (1.6-2.3)
[2018-06-25 08:34] VITALS: BMI 20.7
[2018-06-25] MEDS ORDERED: Magnesium Replacement Protocol 1 EACH MISC MISCELLANE PRN (08:49)
[2018-06-25] MEDS: MAGNESIUM SULFATE-D5W PMX 1 GM in DEXTROSE/WATER 1 100ML.BAG IVPB SCH ×3 (09:20→12:17)
--- NOTE | 2018-06-25 12:11 | P.DS ---
Providers Date of admission: 06/24/18 08:03 Expected date of discharge: 06/25/18 Attending physician: Bubba Aj Consults: 06/23/18 13:27 Consult Physician Urgent Consulting Provider: Casie Miller Consult Reason/Comments: petition, mental health eval, competency Do you want consulting provider notified?: Yes Primary care physician: Bubba Aj - Discharge Diagnosis(es) (1) Anxiety Current Visit: Yes Status: Acute (2) Fall Current Visit: Yes Status: Acute (3) Weakness Current Visit: Yes Status: Acute (4) Alcohol abuse Current Visit: No Status: Acute Hospital Course: This is discharge from a 67-year-old white male essentially admitted for multiple falls and weakness. There has been supposedly history of alcohol abuse but this has been not corroborated at this time. He has been tolerating rehab and has been offered ECF placement. The patient is now has decided to forego this and go home with home health. This has been cleared by social work and his . Patient Condition at Discharge: Stable Plan - Discharge Summary New Discharge Prescriptions: Continue amLODIPine [Norvasc] 10 mg PO DAILY Omeprazole [PriLOSEC] 20 mg PO DAILY Atorvastatin [Lipitor] 10 mg PO DAILY #30 tab LORazepam [Ativan] 0.5 mg PO BID PRN PRN Reason: Anxiety Discharge Medication List Omeprazole [PriLOSEC] 20 mg PO DAILY 02/02/18 [History] amLODIPine [Norvasc] 10 mg PO DAILY 02/02/18 [History] Atorvastatin [Lipitor] 10 mg PO DAILY #30 tab 02/04/18 [Rx] LORazepam [Ativan] 0.5 mg PO BID PRN 06/23/18 [History] Follow up Appointment(s)/Referral(s): Bubba Aj MD [Primary Care Provider] - 1 Week [facility] Visiting Nurse, [NON-STAFF] - Patient Instructions/Handouts: Fall Prevention for Older Adults (DC) Activity/Diet/Wound Care/Special Instructions: Fall precautions, up with assist. Use walker. No alcohol. NO smoking, cessation information given. Cardiac, low fat diet. Discharge Disposition: HOME WITH HOME HEALTH SERVICES
[2018-06-25 14:49] VITALS: BP 107/55; PULSE 78; RESP 16; TEMP 97.3
== END 2018-06-25 17:11 | disposition home health service (06) | DRG 92 ==
LOC: EC 10:04 → INTOOBSV 11:44 → 4MS4W 11:44 → OBSVTOIN 06-24 08:03
PROVIDERS: ADMIT Family Medicine; ATTEND Family Medicine
DX: R29.6 Repeated falls (principal); E87.1 Hypo-osmolality and hyponatremia; R53.1 Weakness; K21.9 Gastro-esophageal reflux disease without esophagitis; E78.5 Hyperlipidemia, unspecified; I10 Essential (primary) hypertension; F17.210 Nicotine dependence, cigarettes, uncomplicated; R41.3 Other amnesia; F10.10 Alcohol abuse, uncomplicated; F41.9 Anxiety disorder, unspecified; Z79.899 Other long term (current) drug therapy; Z98.890 Other specified postprocedural states; Z71.6 Tobacco abuse counseling
CPT/HCPCS: 36415; 70450; 71046; 80048; 80053; 80306; 81003; 82075; 83735; 84132; 85025; 85610; 85730; 93005; 96365; 96366; 99285